=== PATIENT | female | born 1950 | race Caucasian/White ===

== ENCOUNTER 2018-02-23 11:14 | Inpatient (IN) ==
[2018-02-23] MEDS ORDERED: Ondansetron 4 MG/2 ML VIAL IVP ONE (11:39)
[2018-02-23] MEDS ORDERED: Isovue-370 500 ML INFUS..BTL IV ONE (11:41)
--- NOTE | 2018-02-23 11:54 | Emergency Department Note ---
Disposition Clinical Impression: Intra-abdominal abscess Nausea and vomiting Qualifiers: Vomiting type: unspecified Vomiting Intractability: non-intractable Qualified Code(s): R11.2 - Nausea with vomiting, unspecified Disposition: Admitted As Inpatient Condition: Fair Time of Disposition: 16:07 General Adult HPI - General Chief complaint: ED Abdominal Pain Stated complaint: ABD PAIN Time Seen by Provider: 02/23/18 11:17 Source: patient Limitations: no limitations Nursing Notes Reviewed: Yes Vital Signs Reviewed: Yes - History of Present Illness HPI Narrative: 67-year-old female with significant past medical history of recent uterine prolapse surgery completed on February 10 presenting to the emergency department chief complaint of nausea and vomiting. According to the patient for the past 3 days she has had severe nausea. One episode of nonbloody vomiting 2 days ago and another episode yesterday. Episode yesterday was a bright green emesis. Patient also states she had one loose bowel movement yesterday. Patient denies any blood in that stool. Patient states she has been unable to eat or drink anything due to her severe nausea. She denies any abdominal pain, chest pain or changes in her baseline shortness of breath. Denies any fevers at home. Pain Scale: 3 - Related Data Home Medications Medication Instructions Recorded Confirmed Albuterol Sulfate [Ventolin Hfa] 2 puff IH Q4H PRN 02/10/18 02/10/18 Atorvastatin [Lipitor] 10 mg PO HS 02/10/18 02/10/18 Buspirone HCl [Buspar] 15 mg PO BID 02/10/18 02/10/18 Cholecalciferol (D-3) [Vitamin D] 2,000 unit PO DAILY 02/10/18 02/10/18 Fluticasone Propionate Nasal 1 spr NS DAILY 02/10/18 02/10/18 [Flonase] Gabapentin [Neurontin] 300 mg PO QID 02/10/18 02/10/18 Gabapentin [Neurontin] 600 mg PO QID 02/10/18 02/10/18 Glucosamine Sulfate Dipot Chlr 1,000 mg PO DAILY 02/10/18 02/10/18 [Glucosamine] Ibuprofen [Motrin Ib] 200 mg PO TID PRN 02/10/18 02/10/18 Omeprazole [PriLOSEC] 40 mg PO DAILY 02/10/18 02/10/18 Tramadol HCl [Ultram] 50 mg PO TID PRN 02/10/18 02/10/18 Previous Rx's Medication Instructions Recorded Ibuprofen [Motrin] 600 mg PO Q6HR PRN #40 tab 02/11/18 Allergies Allergy/AdvReac Type Severity Reaction Status Date / Time povidone-iodine Allergy Rash Verified 01/27/18 10:26 [From Betadine] quinine Allergy See Verified 01/27/18 10:26 Comments soap [From Betadine] Allergy Rash Verified 01/27/18 10:26 cefdinir AdvReac Diarrhea Verified 01/27/18 10:26 ezetimibe [From Zetia] AdvReac Muscle Pain Verified 01/27/18 10:26 Pneumococcal Vaccine AdvReac Redness of Verified 01/27/18 10:26 [From Pneumovax 23] Skin All systems ED: reviewed and negative except as stated. Constitutional: Denies: fever Eyes: Reports: as per HPI ENT ED: Reports: as per HPI Cardiovascular: Denies: chest pain Respiratory: Denies: cough, dyspnea Gastrointestinal: Reports: nausea, vomiting. Denies: abdominal pain Genitourinary: Denies: urgency, dysuria, hematuria Musculoskeletal: Reports: as per HPI Integumentary: Reports: as per HPI Neurological: Reports: as per HPI Psychiatric: Reports: as per HPI Endocrine: Reports: as per HPI Hematological/Lymphatic: Reports: as per HPI Allergic/Immunologic: Reports: as per HPI Past Medical History - Past Medical History Attestation: Yes The following information was validated with the patient. Medical history: Reports: non-contributory, asthma, GERD, hyperlipidemia Psychiatric history: Reports: anxiety - Social History Smoking Status: Never smoker Smokeless Tobacco Status: No Alcohol use: Reports: none Drug use: Reports: none Physical Exam - General Limitations: no limitations General appearance: alert, in no apparent distress - Head Head exam: atraumatic, normocephalic, normal inspection - Eye Eye exam: Present: normal appearance. Absent: scleral icterus, conjunctival injection - ENT ENT exam: mucous membranes dry - Neck Neck exam: Present: normal inspection, full ROM - Chest Chest inspection: Present: normal inspection, symmetric chest wall rise - Respiratory Respiratory exam: Present: normal lung sounds bilaterally. Absent: respiratory distress, wheezes - Cardiovascular Cardiovascular exam: Present: regular rate, normal rhythm, normal heart sounds - Abdominal Exam Abdominal exam: Present: soft, tenderness (Moderate tenderness to the right lower and left lower quadrants. Minimal distention noted.), other (Well-healing surgical scars noted throughout the abdomen) - Extremities Exam Extremities exam: Present: normal inspection, full ROM - Neurological Exam Neurological exam: Present: alert, oriented X3 - Psychiatric Psychiatric exam: Present: normal affect, normal mood - Skin Skin exam: Present: warm Course Course Narrative: 67-year-old female presenting to the emergency department chief complaint of nausea and vomiting. In the room patient is alert and oriented 3 and hemodynamically stable. She states she does not have abdominal pain but during palpation she has severe abdominal pain to the lower quadrants. Her abdomen has well-healing surgical scars with minimal distention. Patient denies any urinary symptoms or chest pain. She is dry mucous membranes but otherwise physical exam is baseline. At this time will obtain basic abdominal labs including CBC, CMP, lipase along with a urine analysis and CT of abdomen and pelvis with IV contrast. We will fluid resuscitate the patient with 2 L and provide her with Zofran. Disposition pending. - Reevaluation(s) Reevaluation #1: Patient laboratory analysis shows leukocytosis but otherwise at baseline. Patient feeling significantly better after Zofran and fluids. CT of abdomen and pelvis concerning for small bowel obstruction and complex abscess in the right hemipelvis. I spoke with the photocopying machine operator on-call who will speak to the RN OPERATING ROOM physician due to patient's recent gynecological surgery. I spoke with the surgeon on-call Dr. Jacobo who is aware of the patient and will see her tomorrow. My attending spoke with the RN OPERATING ROOM physician principal solutions architect and he would like the patient to be admitted to their service and have an NG tube placed. Patient remains alert and oriented 3 and hemodynamically stable. Patient agrees with this plan. Vital Signs Temperature 98.2 F 02/23/18 11:16 Pulse Rate 83 02/23/18 11:16 Respiratory Rate 16 02/23/18 11:16 Blood Pressure 139/85 02/23/18 11:16 O2 Sat by Pulse Oximetry 95 02/23/18 11:16 Temperature 98.2 F 02/23/18 11:16 Pulse Rate 83 02/23/18 15:35 Respiratory Rate 16 02/23/18 15:35 Blood Pressure 146/75 02/23/18 15:35 O2 Sat by Pulse Oximetry 95 02/23/18 15:35 Oxygen Delivery Oxygen Delivery Room Air Medical Decision Making - Lab Data Result diagrams: 02/23/18 11:27 02/23/18 11:27 Lab Results 02/23/18 02/23/18 02/23/18 Range/Units 11:27 11:27 12:30 WBC 13.6 H (4.3-11.1) K/mcL RBC 4.40 (3.82-4.97) M/mcL Hgb 12.2 (11.5-15.4) g/dL Hct 37.2 (35.3-44.9) % MCV 84.5 (83.0-100.0) fL MCH 27.7 L (28.0-33.3) pg MCHC 32.8 (31.6-35.5) g/dL RDW 13.6 (11.5-14.5) % Plt Count 471 H (140-400) K/mcL MPV 9.6 (9.4-12.4) fL Immature Gran % 0.4 (0-4) % Seg Neutrophils % 69.6 % Lymphocytes % 19.9 % Monocytes % 9.2 % Eosinophils % 0.7 % Basophils % 0.2 % Neutrophils # 9.5 H (1.6-8.9) K/mcL Lymphocytes # 2.7 (0.6-4.6) K/mcL Monocytes # 1.3 (0.0-1.3) K/mcL Eosinophils # 0.1 (0.0-0.6) K/mcL Basophils # 0.0 (0.0-0.2) K/mcL Sodium 136 (136-145) mEq/L Potassium 4.2 (3.5-5.1) mEq/L Chloride 101 (98-107) mEq/L Carbon Dioxide 25 (23-29) mEq/L BUN 26 H (8-23) mg/dL Creatinine 0.86 (0.60-1.20) mg/dL Est GFR ( Amer) > 60 (> 60) Est GFR (Non-Af Amer) > 60 (> 60) BUN/Creatinine Ratio 30 H (6-26) Glucose 107 H (70-105) mg/dL Calculated Osmolality 287 (280-300) Calcium 9.7 (8.6-10.3) mg/dL Total Bilirubin 0.9 (0.3-1.0) mg/dL AST 21 (13-39) Units/L ALT 14 (7-52) Units/L Alkaline Phosphatase 83 (34-104) Units/L Serum Total Protein 8.7 (6.4-8.9) g/dL Albumin 4.2 (3.5-5.7) g/dL Globulin 4.5 H (2.4-3.5) g/dL Albumin/Globulin Ratio 0.9 L (1.1-2.2) Lipase 12 (11-82) Units/L Urine Color Dark Yellow (Yellow) Urine Clarity Clear (Clear) Urine pH 6.0 (5.0-8.0) pH Units Ur Specific [place] > 1.030 H (1.010-1.025) Urine Protein Trace (Neg-Trace) mg/dL Urine Glucose (UA) Normal (Normal) mg/dL Urine Ketones Negative (Negative) mg/dL Urine Blood Negative (Negative) Urine Nitrite Negative (Negative) Urine Bilirubin Small H (Negative) Urine Urobilinogen Normal (Normal) mg/dL Ur Leukocyte Esterase Moderate H (Negative) Urine Microscopic RBC 0-3 (0-3) per hpf Urine Microscopic WBC 15-30 H (0-3) per hpf Ur Squamous Epith Cells Many H (None-Few) per lpf Urine Bacteria None Seen (None-Few) per hpf Hyaline Casts None Seen (None-Few) per lpf Ur Culture Indicated? NO. A (NO) Critical Care Time Critical Care Time: Yes Total Critical Care Time: 35 Attestation: Critical care time 35 minutes managing patient's abdominal abscess. Attestation Statement - Attestation Attestation: Patient was seen with resident physician. I reviewed the history, physical, assessment and plan, and agree with the findings. I also personally evaluated this patient and had [id number] time with this patient. 67-year-old female presents emergency Department chief complaint of nausea and vomiting. Patient recently had a uterine prolapse repair with ovarian removal earlier this month. She said her last 3 days she developed nausea and vomiting. When the resident physician evaluated the patient she realized she also has lower abdominal pain. She was not complaining of pain prior. She has had at least 1 bowel movement recently. No fevers or chills. No chest pain or shortness of breath. Review systems as above remainder negative. Physical exam vital signs are stable. ENT is unremarkable. Heart regular rhythm and rate. Lungs clear. Abdomen soft tender in the lower abdomen where there is some distention. There is no guarding or rigidity. Extremities are unremarkable. Neurologically intact. Skin no rashes. Psych normal. ED course. We will do workup to check for about structure. We will also treat the patient's nausea and dehydration with fluids and medication. Disposition will depend on the findings of the workup. Hemodynamically she remained stable. CT scan the abdomen and pelvis was concerning for possible abscess as well as a small bowel obstruction. This of course is consistent with her leukocytosis as well. We will contact OB in general surgery. Patient will require hospitalization and IV antibiotics and further intervention as indicated. RN OPERATING ROOM agreed to admit the patient to their service. We will start antibiotics here in the emergency department. We will also make sure surgery is notified. We will place an NG tube. She will be admitted for further evaluation treatment. Critical care time 35 minutes. I agree with resident physician assessment and plan.
[2018-02-23] MEDS: 0.9 % Sodium Chloride 1,000 ML IVC SCH ×2 (12:04→13:11)
[2018-02-23 12:07] LABS: Basophils % 0.2 %; Eosinophils # 0.1 K/mcL (0.0-0.6); Eosinophils % 0.7 %; Hematocrit 37.2 % (35.3-44.9); Hemoglobin 12.2 g/dL (11.5-15.4); Immature Granulocytes % 0.4 % (0-4); Lymphocytes # 2.7 K/mcL (0.6-4.6); Lymphocytes % 19.9 %; Mean Corpuscular HGB Conc 32.8 g/dL (31.6-35.5); Mean Corpuscular Hemoglobin 27.7 pg (28.0-33.3); Mean Corpuscular Volume 84.5 fL (83.0-100.0); Mean Platelet Volume 9.6 fL (9.4-12.4); Monocytes # 1.3 K/mcL (0.0-1.3); Monocytes % 9.2 %; Neutrophils # 9.5 K/mcL (1.6-8.9); Platelet Count 471 K/mcL (140-400); Red Cell Distribution Width 13.6 % (11.5-14.5); Segmented Neutrophils % 69.6 %
[2018-02-23 12:16] LABS: Alanine Aminotransferase 14 Units/L (7-52); Albumin 4.2 g/dL (3.5-5.7); Albumin/Globulin Ratio 0.9 (1.1-2.2); Alkaline Phosphatase 83 Units/L (34-104); Aspartate Amino Transferase 21 Units/L (13-39); BUN/Creatinine Ratio 30 (6-26); Bilirubin,Total 0.9 mg/dL (0.3-1.0); Blood Urea Nitrogen 26 mg/dL (8-23); Calcium 9.7 mg/dL (8.6-10.3); Carbon Dioxide 25 mEq/L (23-29); Chloride 101 mEq/L (98-107); Globulin 4.5 g/dL (2.4-3.5); Glucose 107 mg/dL (70-105); Lipase 12 Units/L (11-82); Osmolality,Calculated 287 (280-300); Potassium 4.2 mEq/L (3.5-5.1); Sodium 136 mEq/L (136-145); Total Protein 8.7 g/dL (6.4-8.9); eGFR For Non-African Americans > 60 (> 60)
[2018-02-23 12:40] LABS: Bilirubin,Urine Small (Negative); Blood,Urine Negative (Negative); Color,Urine Dark Yellow (Yellow); Glucose,Urine (UA) Normal (Normal); Ketones,Urine Negative (Negative); Leukocyte Esterase,Urine Moderate (Negative); Nitrite,Urine Negative (Negative); Protein,Urine Trace mg/dL (Neg-Trace); Specific Gravity,Urine > 1.030 (1.010-1.025); Urobilinogen,Urine Normal (Normal)
[2018-02-23 12:44] LABS: Bacteria,Urine None Seen per hpf (None-Few); Clarity,Urine Clear (Clear); Hyaline Casts,Urine None Seen per lpf (None-Few); RBC,Urine 0-3 per hpf (0-3); Squamous Epithelial Cell,Urine Many per lpf (None-Few); WBC,Urine 15-30 per hpf (0-3)
[2018-02-23] MEDS ORDERED: Piperacillin/Tazobactam 4.5 GM in 0.9 % Sodium Chloride Mini Bag 100 ML IVPB ONE (14:58)
[2018-02-23] MEDS ORDERED: Doxycycline 100 MG in 0.9 % Sodium Chloride Mini Bag 100 ML IVPB ONE (14:59)
--- NOTE | 2018-02-23 15:14 | OB/GYN History & Physical ---
Date of Encounter: 02/23/18 Time of Encounter: 15:04 Assessment and Plan (1) Partial small bowel obstruction Current visit: Yes Status: Acute (2) Neutrophilic leukocytosis Current visit: Yes Status: Acute (3) Vaginal vault prolapse after hysterectomy Current visit: No Status: Acute History of Present Illness Chief complaint: nausea and vomiting x 2 days HPI: Ms. Hendrix is a 67 year old female para 3 who presents to the emergency room complaining of 2 days of nausea and vomiting. This patient states that she has been unable to keep anything down over the past 24 hours. She states that she was passing gas and having bowel movements up until yesterday morning. She has had none since. On presentation her abdomen was mildly distended and tender. A CT of the abdomen and pelvis was ordered which did show a partial small bowel obstruction with a fluid collection in the cul-de-sac measuring 3.4 x 6.4 cm. There was a questionable hemorrhage versus abscess. Her appendix was also distended. Patient had undergone a recent robotic sacral colpopexy with bilateral salpingo-oophorectomy on February [address] Chun. There was a 30 mL blood loss and was uneventful. Patient states that she had been doing well up until 2 days ago. She is been eating, taking her medications, passing flatus and having diarrhea. Blood work drawn today showed an H&H of 12.2/37.2, WBC of 13.6 with elevated neutrophils 9.5. Her glucose was 107, BUN was 26 with her BUN/CR ratio of 30. Urinalysis showed moderate leukocytes, moderate leukocyte esterase with a specific gravity greater than 1.030. Rest at patient's vital signs were stable. She is not febrile. She is not tachycardic. Patient states she last ate last p.m. Last dose medications include her gabapentin this a.m. Omeprazole was 2 days ago. Patient took Vicodin last p.m. She has allergies to iodine, quinine, Cefdinir, Zetia and Pneumovax Socially she denies tobacco, alcohol, illicit drug use Current medications include Bentyl, buspirone, tramadol, ibuprofen, Vicodin, gabapentin and omeprazole. Chronic medical conditions include fibromyalgia, hypercholesterolemia, anxiety, asthma, osteopenia, arthritis, GERD Surgical history includes a vaginal hysterectomy some years ago, full dental extraction and a recent robotic sacral colpopexy with BSO. Obstetric history significant for 3 term vaginal deliveries uncomplicated. Family history significant for hypertension and heart disease. Past Med Surg Social Fam HX - Past Medical History Medical history: non-contributory, asthma, GERD, hyperlipidemia Additional medical history: anemia, Psychiatric history: anxiety - Social History Smoking Status: Never smoker Smokeless Tobacco Status: No Alcohol use: none Drug use: none Obstetrical History - Pregnancies : 3 Para: 3 Livin Medications and Allergies Albuterol Sulfate [Ventolin Hfa] 2 puff IH Q4H PRN 02/10/18 [History] Atorvastatin [Lipitor] 10 mg PO HS 02/10/18 [History] Buspirone HCl [Buspar] 15 mg PO BID 02/10/18 [History] Cholecalciferol (D-3) [Vitamin D] 2,000 unit PO DAILY 02/10/18 [History] Fluticasone Propionate Nasal [Flonase] 1 spr NS DAILY 02/10/18 [History] Gabapentin [Neurontin] 300 mg PO QID 02/10/18 [History] Gabapentin [Neurontin] 600 mg PO QID 02/10/18 [History] Glucosamine Sulfate Dipot Chlr [Glucosamine] 1,000 mg PO DAILY 02/10/18 [History] Ibuprofen [Motrin Ib] 200 mg PO TID PRN 02/10/18 [History] Omeprazole [PriLOSEC] 40 mg PO DAILY 02/10/18 [History] Tramadol HCl [Ultram] 50 mg PO TID PRN 02/10/18 [History] Ibuprofen [Motrin] 600 mg PO Q6HR PRN #40 tab 02/11/18 [Rx] Allergy/AdvReac Type Severity Reaction Status Date / Time povidone-iodine Allergy Rash Verified 01/27/18 10:26 [From Betadine] quinine Allergy See Verified 01/27/18 10:26 Comments soap [From Betadine] Allergy Rash Verified 01/27/18 10:26 cefdinir AdvReac Diarrhea Verified 01/27/18 10:26 ezetimibe [From Zetia] AdvReac Muscle Pain Verified 01/27/18 10:26 Pneumococcal Vaccine AdvReac Redness of Verified 01/27/18 10:26 [From Pneumovax 23] Skin Review of System OB All systems PM: reviewed and no additional remarkable complaints except as stated Exam - Vital Signs Vital signs: Initial Vital Signs Temp Pulse Resp BP Pulse Ox 98.2 F 83 16 139/85 95 02/23/18 11:16 02/23/18 11:16 02/23/18 11:16 02/23/18 11:16 02/23/18 11:16 - Constitutional Constitutional: well developed, well nourished, no acute distress, average body habitus - HEENT HEENT: EOMI, PERRL, Normocephaly, Mucus Membranes Moist - Neck Neck exam: full ROM - Lungs Respiratory exam: CTAB - Cardiovascular Cardiovascular exam: RRR - Abdomen Abdomen: Present: bowel sounds hypoactive, diffuse tenderness (Tenderness is mild on examination in all 4 quadrants, mild guarding noted. Incisions well healed from surgery 2 weeks ago no erythema or induration. No signs of infecti on.), guarding noted - Extremities Extremities exam: full ROM Results Result Diagrams: 02/23/18 11:27 02/23/18 11:27 Abnormal lab results WBC 13.6 K/mcL (4.3-11.1) H 02/23/18 11:27 MCH 27.7 pg (28.0-33.3) L 02/23/18 11:27 Plt Count 471 K/mcL (140-400) H 02/23/18 11:27 Neutrophils # 9.5 K/mcL (1.6-8.9) H 02/23/18 11:27 BUN 26 mg/dL (8-23) H 02/23/18 11:27 BUN/Creatinine Ratio 30 (6-26) H 02/23/18 11:27 Glucose 107 mg/dL (70-105) H 02/23/18 11:27 Globulin 4.5 g/dL (2.4-3.5) H 02/23/18 11:27 Albumin/Globulin Ratio 0.9 (1.1-2.2) L 02/23/18 11:27 Ur Specific [place] > 1.030 (1.010-1.025) H 02/23/18 12:30 Urine Bilirubin Small (Negative) H 02/23/18 12:30 Ur Leukocyte Esterase Moderate (Negative) H 02/23/18 12:30 Urine Microscopic WBC 15-30 per hpf (0-3) H 02/23/18 12:30 Ur Squamous Epith Cells Many per lpf (None-Few) H 02/23/18 12:30 Ur Culture Indicated? NO. (NO) A 02/23/18 12:30 All other labs normal.
[2018-02-23] MEDS: Ringers Solution, Lactated 1,000 ML IVC SCH (19:57)
[2018-02-23] MEDS: Piperacillin/Tazobactam 3.375 GM in 0.9 % Sodium Chloride Mini Bag 100 ML IVPB SCH (20:07)
[2018-02-24] MEDS: Piperacillin/Tazobactam 3.375 GM in 0.9 % Sodium Chloride Mini Bag 100 ML IVPB SCH ×4 (04:15→23:39)
[2018-02-24] MEDS: Ringers Solution, Lactated 1,000 ML IVC SCH ×3 (04:39→20:22)
[2018-02-24 05:54] LABS: Basophils % 0.2 %; Eosinophils # 0.1 K/mcL (0.0-0.6); Eosinophils % 1.1 %; Hematocrit 32.6 % (35.3-44.9); Hemoglobin 10.7 g/dL (11.5-15.4); Immature Granulocytes % 0.3 % (0-4); Lymphocytes # 1.7 K/mcL (0.6-4.6); Mean Corpuscular HGB Conc 32.8 g/dL (31.6-35.5); Mean Corpuscular Hemoglobin 27.9 pg (28.0-33.3); Mean Corpuscular Volume 85.1 fL (83.0-100.0); Mean Platelet Volume 9.2 fL (9.4-12.4); Monocytes # 1.2 K/mcL (0.0-1.3); Monocytes % 10.4 %; Neutrophils # 8.1 K/mcL (1.6-8.9); Platelet Count 373 K/mcL (140-400); Red Blood Count 3.83 M/mcL (3.82-4.97); Red Cell Distribution Width 13.5 % (11.5-14.5)
[2018-02-24 06:21] LABS: Alanine Aminotransferase 11 Units/L (7-52); Albumin 3.4 g/dL (3.5-5.7); Alkaline Phosphatase 67 Units/L (34-104); Aspartate Amino Transferase 17 Units/L (13-39); BUN/Creatinine Ratio 26 (6-26); Bilirubin,Total 0.8 mg/dL (0.3-1.0); Blood Urea Nitrogen 20 mg/dL (8-23); Calcium 8.7 mg/dL (8.6-10.3); Carbon Dioxide 24 mEq/L (23-29); Chloride 106 mEq/L (98-107); Globulin 3.5 g/dL (2.4-3.5); Glucose 96 mg/dL (70-105); Osmolality,Calculated 284 (280-300); Potassium 3.7 mEq/L (3.5-5.1); Sodium 136 mEq/L (136-145); Total Protein 6.9 g/dL (6.4-8.9); eGFR For Non-African Americans > 60 (> 60)
[2018-02-24] MEDS ORDERED: Ondansetron 4 MG/2 ML VIAL IVP PRN (08:11)
--- NOTE | 2018-02-24 09:09 | General Surgery Consult Note ---
<Darline Turk - Last Filed: 02/24/18 12:08> Date of Encounter: 02/24/18 Time of Encounter: 09:07 Assessment and Plan (1) Partial small bowel obstruction Current Visit: Yes Status: Acute vs ileus. See a/p above (2) Nausea and vomiting Current Visit: Yes Status: Acute Resolving. No emesis since NG placement Qualifiers: Vomiting type: unspecified Vomiting Intractability: non-intractable Qualified Code(s): R11.2 - Nausea with vomiting, unspecified (3) Abnormal CT of the abdomen Current Visit: Yes Status: Acute CT/CT abd pelvis w iv no oral IMPRESSION: 1. Small bowel obstruction with distended mildly edematous small bowel loops with gradual transition in the mid to distal small bowel at the level of the right hemipelvis. The changes may be related to adhesions or evolving postoperative collection in the right hemipelvis. 2. Complex fluid in the right hemipelvis measuring 3.4 x 6.4 cm. This may represent an area of hemorrhage but is concerning for possible abscess. Continued follow-up recommended. 3. Liquid stool throughout the colon. Some mild distention of the appendix with no significant periappendiceal inflammatory changes. 4. Hepatic steatosis. Pt is sitting upright in chair at bedside upon my entry to room. She states her symptoms are improved compared to yesterday. Her abd exam is positive for LUQ and LLQ pain with palpation, no involuntary guarding. Reviewed findings with DR. Chun who is agreeable to consult for drain placement. Consult placed to IR for possible drainage for abd/pelvic fluid. Recommend continue supportive care and discomfort management, NG tube though intermittent wall suction, and continue IV antibiotics. Continue serial abdominal exams and repeat a.m. labs. Surgery will continue to follow along with you and assess progress. History of Present Illness Consult date: 02/23/18 (Dr. Malinda Jacobo) Reason for consult: other (Possible SBO, possible abd abscess) Requesting physician: Pau Alejo History of present illness: Blaire's past medical, surgical, social, and family history has been reviewed with the patient and updated in the electronic medical record where indicated. OF note she reports a surgical history of hysterectomy and her most recent procedure detailed below. Surgery has been consulted for recommendations regarding concern for small bowel obstruction and possible abdominal abscess. Ms. Hendrix recently underwentrobotic sacral colpopexy with bilateral salpingo- oophorectomy on February 10, [address] Chun. She presented to the emergency department on 02/23/2018 following a two-day history of abdominal pain and pressure, nausea, and vomiting. She reports she was unable to hold down any liquid. She denied diarrhea. She denied fever, chills, headache, dizziness, chest pain, shortness of breath, or urinary signs or symptoms. She reports that when she would walk or need to urinate it caused abdominal pain that required her to splint her abdomen. She is unable to quantify her pain meds scale of 0 to 10, stating "it was just pressure." She states since the NG tube was placed that her abdominal pressure and nausea have resolved. She has not passed flatus or had a bowel movement since admission. She reports the last time she can remember having a bowel movement or passing gas would of been on or Saturday of last week. Past Med Surg Social Fam HX - Past Medical History Source: patient, old records reviewed Medical history: asthma, GERD, hyperlipidemia Additional medical history: anemia, fibromyalgia Psychiatric history: anxiety - Past Surgical History Surgical History: hysterectomy Additional surgical history: robotic sacrocolpopexy 02/10/2018 (Dr. Chun) - Social History Smoking Status: Never smoker Smokeless Tobacco Status: No Alcohol use: none Drug use: none Occupational status: unemployed Current living situation: Home - Independent Activity Level: Independent ambulation Recent Out of Country Travel Within the Last 8 Weeks: No Exposure or Possible Exposure to Illness During Travel: No Medications and Allergies Albuterol Sulfate [Ventolin Hfa] 2 puff IH Q4H PRN 02/10/18 [History] Atorvastatin [Lipitor] 10 mg PO HS 02/10/18 [History] Buspirone HCl [Buspar] 15 mg PO BID 02/10/18 [History] Cholecalciferol (D-3) [Vitamin D] 2,000 unit PO DAILY 02/10/18 [History] Fluticasone Propionate Nasal [Flonase] 1 spr NS DAILY 02/10/18 [History] Gabapentin [Neurontin] 300 mg PO QID 02/10/18 [History] Gabapentin [Neurontin] 600 mg PO QID 02/10/18 [History] Glucosamine Sulfate Dipot Chlr [Glucosamine] 1,000 mg PO DAILY 02/10/18 [History] Ibuprofen [Motrin Ib] 200 mg PO TID PRN 02/10/18 [History] Omeprazole [PriLOSEC] 40 mg PO DAILY 02/10/18 [History] Tramadol HCl [Ultram] 50 mg PO TID PRN 02/10/18 [History] Ibuprofen [Motrin] 600 mg PO Q6HR PRN #40 tab 02/11/18 [Rx] Allergy/AdvReac Type Severity Reaction Status Date / Time povidone-iodine Allergy Rash Verified 01/27/18 10:26 [From Betadine] quinine Allergy See Verified 01/27/18 10:26 Comments soap [From Betadine] Allergy Rash Verified 01/27/18 10:26 cefdinir AdvReac Diarrhea Verified 01/27/18 10:26 ezetimibe [From Zetia] AdvReac Muscle Pain Verified 01/27/18 10:26 Pneumococcal Vaccine AdvReac Redness of Verified 01/27/18 10:26 [From Pneumovax 23] Skin Review of Systems All systems PM: reviewed and no additional remarkable complaints except as stated All systems PM: The remainder of the systems were reviewed and are negative General Surgery Exam Initial Vital Signs Temp Pulse Resp BP Pulse Ox 98.2 F 83 16 139/85 95 02/23/18 11:16 02/23/18 11:16 02/23/18 11:16 02/23/18 11:16 02/23/18 11:16 Vital Signs Temp Pulse Resp BP Pulse Ox 02/24/18 08:00 99.1 F 77 16 138/72 96 02/24/18 03:50 98.4 F 75 16 144/72 94 02/23/18 19:57 99.2 F 70 16 127/69 98 02/23/18 16:30 98.4 F 74 16 148/76 95 02/23/18 16:02 16 142/69 02/23/18 15:35 83 16 146/75 95 02/23/18 15:13 85 135/71 94 02/23/18 14:15 81 18 140/75 98 02/23/18 13:00 85 16 124/57 96 Intake and Output 02/23/18 02/24/18 02/24/18 23:59 07:59 15:59 Intake Total 1100 / 1100 1100 / 1100 Output Total 500 / 500 850 / 850 Balance -500 / -500 250 / 250 1100 / 1100 Intake: IV Fluids 1100 / 1100 1100 / 1100 Lactated Ringers 1,000 ML @ 125 1000 / 1000 1000 / 1000 mls/hr IVC .Q8H PAT Rx#: [id number] Zosyn 3.375 GM In 0.9 % Sodium 100 / 100 100 / 100 Chloride (Mini-Bag +) 100 ML @ 25 mls/hr IVPB Q8H PAT Rx#: [id number] Output: Urine 300 / 300 200 / 200 Gastric Drainage 200 / 200 650 / 650 Other: Weight 75.4 kg 76.3 kg Patient Weight 02/24/18 23:59 Weight 76.3 kg VITAL SIGNS: Reviewed. See [facility] GENERAL: In no apparent distress. HEENT: Normocephalic, atraumatic, pupils are equal and reactive, extraocular motions intact, oropharynx is pink and moist, there is no neck adenopathy or JVD noted. CHEST/RESPIRATORY: The thorax is free from signs of trauma. Lung sounds: clear to auscultation, normal respiratory effort CARDIAC: Regular rate and rhythm. Normal S1 and S2, without murmurs, gallops, or rubs. VASCULAR: No Edema. 2+ peripheral pulses. ABDOMEN: soft, tender left upper and lower quadrant to mild moderate palpation, no involuntary guarding noted, absent bowel sounds, previous surgical incisions for the robotic procedure are clean, dry, and intact. MUSCULOSKELETAL: Good range of motion of all major joints. Extremities without clubbing, cyanosis or edema. NEUROLOGIC EXAM: Alert and oriented x 3. Speech normal. Follows commands. PSYCHIATRIC: Mood normal. SKIN: No rash or lesions. Exam Initial Vital Signs Temp Pulse Resp BP Pulse Ox 98.2 F 83 16 139/85 95 02/23/18 11:16 02/23/18 11:16 02/23/18 11:16 18 11:16 02/23/18 11:16 Results - Labs 02/24/18 05:44 02/24/18 05:44 Abnormal lab results Hgb 10.7 g/dL (11.5-15.4) L D 02/24/18 05:44 Hct 32.6 % (35.3-44.9) L 02/24/18 05:44 MCH 27.9 pg (28.0-33.3) L 02/24/18 05:44 MPV 9.2 fL (9.4-12.4) L 02/24/18 05:44 Albumin 3.4 g/dL (3.5-5.7) L 02/24/18 05:44 Albumin/Globulin Ratio 1.0 (1.1-2.2) L 02/24/18 05:44 Ur Specific [place] > 1.030 (1.010-1.025) H 02/23/18 12:30 Urine Bilirubin Small (Negative) H 02/23/18 12:30 Ur Leukocyte Esterase Moderate (Negative) H 02/23/18 12:30 Urine Microscopic WBC 15-30 per hpf (0-3) H 02/23/18 12:30 Ur Squamous Epith Cells Many per lpf (None-Few) H 02/23/18 12:30 Ur Culture Indicated? NO. (NO) A 02/23/18 12:30 Diabetes panel 02/23/18 02/24/18 Range/Units 11:27 05:44 Sodium 136 136 (136-145) mEq/L Potassium 4.2 3.7 (3.5-5.1) mEq/L Chloride 101 106 (98-107) mEq/L Carbon Dioxide 25 24 (23-29) mEq/L BUN 26 H 20 (8-23) mg/dL Creatinine 0.86 0.77 (0.60-1.20) mg/dL Glucose 107 H 96 (70-105) mg/dL Calcium 9.7 8.7 (8.6-10.3) mg/dL AST 21 17 (13-39) Units/L ALT 14 11 (7-52) Units/L Alkaline Phosphatase 83 67 (34-104) Units/L Albumin 4.2 3.4 L (3.5-5.7) g/dL Calcium panel 02/23/18 02/24/18 Range/Units 11:27 05:44 Calcium 9.7 8.7 (8.6-10.3) mg/dL Albumin 4.2 3.4 L (3.5-5.7) g/dL Pituitary panel 02/23/18 02/24/18 Range/Units 11:27 05:44 Sodium 136 136 (136-145) mEq/L Potassium 4.2 3.7 (3.5-5.1) mEq/L Chloride 101 106 (98-107) mEq/L Carbon Dioxide 25 24 (23-29) mEq/L BUN 26 H 20 (8-23) mg/dL Creatinine 0.86 0.77 (0.60-1.20) mg/dL Glucose 107 H 96 (70-105) mg/dL Calcium 9.7 8.7 (8.6-10.3) mg/dL Adrenal panel 02/23/18 02/24/18 Range/Units 11:27 05:44 Sodium 136 136 (136-145) mEq/L Potassium 4.2 3.7 (3.5-5.1) mEq/L Chloride 101 106 (98-107) mEq/L Carbon Dioxide 25 24 (23-29) mEq/L BUN 26 H 20 (8-23) mg/dL Creatinine 0.86 0.77 (0.60-1.20) mg/dL Glucose 107 H 96 (70-105) mg/dL Calcium 9.7 8.7 (8.6-10.3) mg/dL Total Bilirubin 0.9 0.8 (0.3-1.0) mg/dL AST 21 17 (13-39) Units/L ALT 14 11 (7-52) Units/L Alkaline Phosphatase 83 67 (34-104) Units/L Albumin 4.2 3.4 L (3.5-5.7) g/dL All other labs normal. - Imaging Abdominal x-ray: report reviewed, image reviewed CT scan - abdomen: report reviewed, image reviewed CT scan - pelvis: report reviewed, image reviewed Consult Discharge Plan - Plan Referrals: Cal Odom MD [Primary Care Provider] - <Malinda Jacobo - Last Filed: 02/24/18 18:09> Date of Encounter: 02/24/18 Assessment and Plan (1) Partial small bowel obstruction Current Visit: Yes Status: Acute (2) Nausea and vomiting Current Visit: Yes Status: Acute Qualifiers: Vomiting type: unspecified Vomiting Intractability: non-intractable Qualified Code(s): R11.2 - Nausea with vomiting, unspecified (3) Abnormal CT of the abdomen Current Visit: Yes Status: Acute (4) Small bowel obstruction due to postoperative adhesions Current Visit: Yes Status: Acute discussed with patient that I have personally reviewed her CT scan she has a small bowel obstruction without flatus or bm for about 3 days now continue ngt decompression to lIWS ivf hydration prn pain control ambulate (ok to clamp ngt to ambulate) gi/dvt prophylaxis IS, aggressive pulmonary toilet await return of bowel function IR note noted (5) GERD (gastroesophageal reflux disease) Current Visit: Yes Status: Chronic patient on PPI therapy at home, changed to protonix Qualifiers: Esophagitis presence: esophagitis presence not specified Qualified Code(s): K21.9 - Gastro-esophageal reflux disease without esophagitis (6) Low grade fever Current Visit: Yes Status: Acute added scheduled ofirmev Past Med Surg Social Fam HX - Past Medical History Source: patient Medical history: asthma, GERD, hyperlipidemia Review of Systems All systems PM: reviewed and no additional remarkable complaints except as stated All systems PM: The remainder of the systems were reviewed and are negative General Surgery Exam Initial Vital Signs Temp Pulse Resp BP Pulse Ox 98.2 F 83 16 139/85 95 02/23/18 11:16 02/23/18 11:16 02/23/18 11:16 02/23/18 11:16 02/23/18 11:16 - General physical appearance well developed, well nourished, no distress - Eyes PERRL, normal ocular movement - ENT normal mucosa, normocephalic - Neck trachea midline - Respiratory normal expansion, clear to auscultation - Cardiovascular Cardiovascular exam: Present: RRR - Abdomen Abdomen general surgery: Present: bowel sounds present, soft, tender. Absent: distended, guarding, rebound Abdominal Tenderness: Present: RLQ - Integumentary Integumentary general surgery: Present: warm and dry, no abnormal pigmentation - Neurologic Present: CN 2-12 grossly intact - Musculoskeletal Present: normal posture - Psychiatric Psychiatric general surgery: Present: A&Ox3, speech is normal Exam Initial Vital Signs Temp Pulse Resp BP Pulse Ox 98.2 F 83 16 139/85 95 02/23/18 11:16 02/23/18 11:16 18 11:16 02/23/18 11:16 02/23/18 11:16 Results - Labs 02/24/18 05:44 02/24/18 05:44 Abnormal lab results Hgb 10.7 g/dL (11.5-15.4) L D 02/24/18 05:44 Hct 32.6 % (35.3-44.9) L 02/24/18 05:44 MCH 27.9 pg (28.0-33.3) L 02/24/18 05:44 MPV 9.2 fL (9.4-12.4) L 02/24/18 05:44 PT 12.8 Seconds (9.4-12.1) H 02/24/18 11:17 Albumin 3.4 g/dL (3.5-5.7) L 02/24/18 05:44 Albumin/Globulin Ratio 1.0 (1.1-2.2) L 02/24/18 05:44 Ur Specific Ora > 1.030 (1.010-1.025) H 02/23/18 12:30 Urine Bilirubin Small (Negative) H 02/23/18 12:30 Ur Leukocyte Esterase Moderate (Negative) H 02/23/18 12:30 Urine Microscopic WBC 15-30 per hpf (0-3) H 02/23/18 12:30 Ur Squamous Epith Cells Many per lpf (None-Few) H 02/23/18 12:30 Ur Culture Indicated? NO. (NO) A 02/23/18 12:30 Diabetes panel 02/24/18 Range/Units 05:44 Sodium 136 (136-145) mEq/L Potassium 3.7 (3.5-5.1) mEq/L Chloride 106 (98-107) mEq/L Carbon Dioxide 24 (23-29) mEq/L BUN 20 (8-23) mg/dL Creatinine 0.77 (0.60-1.20) mg/dL Glucose 96 (70-105) mg/dL Calcium 8.7 (8.6-10.3) mg/dL AST 17 (13-39) Units/L ALT 11 (7-52) Units/L Alkaline Phosphatase 67 (34-104) Units/L Albumin 3.4 L (3.5-5.7) g/dL Calcium panel 02/24/18 Range/Units 05:44 Calcium 8.7 (8.6-10.3) mg/dL Albumin 3.4 L (3.5-5.7) g/dL Pituitary panel 02/24/18 Range/Units 05:44 Sodium 136 (136-145) mEq/L Potassium 3.7 (3.5-5.1) mEq/L Chloride 106 (98-107) mEq/L Carbon Dioxide 24 (23-29) mEq/L BUN 20 (8-23) mg/dL Creatinine 0.77 (0.60-1.20) mg/dL Glucose 96 (70-105) mg/dL Calcium 8.7 (8.6-10.3) mg/dL Adrenal panel 02/24/18 Range/Units 05:44 Sodium 136 (136-145) mEq/L Potassium 3.7 (3.5-5.1) mEq/L Chloride 106 (98-107) mEq/L Carbon Dioxide 24 (23-29) mEq/L BUN 20 (8-23) mg/dL Creatinine 0.77 (0.60-1.20) mg/dL Glucose 96 (70-105) mg/dL Calcium 8.7 (8.6-10.3) mg/dL Total Bilirubin 0.8 (0.3-1.0) mg/dL AST 17 (13-39) Units/L ALT 11 (7-52) Units/L Alkaline Phosphatase 67 (34-104) Units/L Albumin 3.4 L (3.5-5.7) g/dL All other labs normal. - Imaging CT scan - abdomen: report reviewed, image reviewed CT scan - pelvis: report reviewed, image reviewed - Attending Attestation I have personally performed a face to face evaluation on this patient. I have reviewed and agree with the care plan. History and Exam by me shows:
[2018-02-24 11:59] LABS: INR 1.1; Prothrombin Time 12.8 Seconds (9.4-12.1)
[2018-02-24] MEDS ORDERED: OXYCODONE Oral CONC 10 MG/0.5 ML ORAL.SYG SL PRN ×2 (12:23)
[2018-02-24] MEDS ORDERED: Saliva Stimulant 100ml BOTTLE PO PRN (12:24)
[2018-02-24] MEDS ORDERED: Chloraseptic Spray 177 ML BOTTLE MM PRN (12:24)
[2018-02-24] MEDS ORDERED: Acetaminophen IV 1,000 MG/100 ML INFUS..BTL IVPB ONE (13:25)
[2018-02-24] MEDS ORDERED: *HR* Midazolam HCl 2 MG/2 ML VIAL IVP ONE (15:14)
[2018-02-24] MEDS ORDERED: *HR* FentaNYL (PF) 100 MCG/2 ML VIAL IVP ONE (15:14)
--- NOTE | 2018-02-24 15:36 | IR Procedure Note ---
Date of procedure: 02/24/18 Consent Obtained: Verbal consent, Written consent Timeout: Correct patient and procedure verified, Correct site verified, Time out performed, Skin prep completed Local anesthetic: Lidocaine 1% Indications: Pelvic fluid collection Procedure Performed: CT guided aspiration Was there an medical assistant per diem present: No Site/Technique: CT guided pelvic fluid aspiration Results/Findings: Small pelvic hematoma present Estimated blood loss (cc): 1 Complications: None; Tolerated procedure well Post Procedure Treatment Plan: Continue inpatient care Specimen: 10 cc old blood
[2018-02-24] MEDS ORDERED: Famotidine 20 MG/2 ML VIAL IVP SCH (18:00)
--- NOTE | 2018-02-24 18:11 | OB/GYN Progress Note ---
Date of Encounter: 02/24/18 Time of Encounter: 08:10 Subjective - Subjective Principal diagnosis: s/p sacrocolpopexy with bowel obstruction vs ileus and pelvic fluid collect Interval history: Pt 2 weeks s/p uncomplicated robotic sacrocolpopexy now with h/o n/v and no passage of gas or stool per rectum since saturday afternoon. She presented feeling quite weak with profuse n/v. She now has NG with bilious drainage. She feels better overall and feels urge to have a bm. She is ambulating to BR and voiding. Objective - Vital Signs Latest vital signs: Vital Signs Temp Pulse Resp BP Pulse Ox 02/24/18 17:12 99.5 F 67 16 144/77 02/24/18 15:28 69 12 114/59 97 02/24/18 08:00 99.1 F 77 16 138/72 96 02/24/18 03:50 98.4 F 75 16 144/72 94 02/23/18 19:57 99.2 F 70 16 127/69 98 Intake and Output 02/24/18 02/24/18 02/24/18 07:59 15:59 23:59 Intake Total 1100 / 1100 1100 / 1100 Output Total 850 / 850 300 / 300 Balance 250 / 250 800 / 800 Intake: IV Fluids 1100 / 1100 1100 / 1100 Lactated Ringers 1,000 ML @ 125 1000 / 1000 1000 / 1000 mls/hr IVC .Q8H PAT Rx#: [id number] Zosyn 3.375 GM In 0.9 % Sodium 100 / 100 100 / 100 Chloride (Mini-Bag +) 100 ML @ 25 mls/hr IVPB Q8H PAT Rx#: [id number] Output: Urine 200 / 200 300 / 300 Gastric Drainage 650 / 650 Other: Weight 76.3 kg Patient Weight 02/24/18 23:59 Weight 76.3 kg - I&O's I&O's: Intake & Output 02/21/18 02/22/18 02/23/18 02/24/18 23:59 23:59 23:59 23:59 Intake Total 2000 / 2000 2200 / 2200 Output Total 650 / 650 1150 / 1150 Balance 1350 / 1350 1050 / 1050 Weight 75.4 kg 76.3 kg - Exam Lungs: bilateral: normal Chest: Normal S1, Normal S2 Extremities: Present: normal Abdomen: Present: soft, other (minimally distended, diffusely tender.) Incision OB: Present: intact - Labs Labs: Abnormal lab results Hgb 10.7 g/dL (11.5-15.4) L D 02/24/18 05:44 Hct 32.6 % (35.3-44.9) L 02/24/18 05:44 MCH 27.9 pg (28.0-33.3) L 02/24/18 05:44 MPV 9.2 fL (9.4-12.4) L 02/24/18 05:44 PT 12.8 Seconds (9.4-12.1) H 02/24/18 11:17 Albumin 3.4 g/dL (3.5-5.7) L 02/24/18 05:44 Albumin/Globulin Ratio 1.0 (1.1-2.2) L 02/24/18 05:44 Ur Specific [place] > 1.030 (1.010-1.025) H 02/23/18 12:30 Urine Bilirubin Small (Negative) H 02/23/18 12:30 Ur Leukocyte Esterase Moderate (Negative) H 02/23/18 12:30 Urine Microscopic WBC 15-30 per hpf (0-3) H 02/23/18 12:30 Ur Squamous Epith Cells Many per lpf (None-Few) H 02/23/18 12:30 Ur Culture Indicated? NO. (NO) A 02/23/18 12:30 Consult Discharge Plan - Plan Referrals: Cal Odom MD [Primary Care Provider] -
[2018-02-24] MEDS ORDERED: Piperacillin/Tazobactam 3.375 GM in 0.9 % Sodium Chloride Mini Bag 100 ML IVPB SCH (19:00)
[2018-02-24] MEDS: Acetaminophen IV 1,000 MG/100 ML INFUS..BTL IVPB SCH (21:09)
[2018-02-25] MEDS ORDERED: Acetaminophen IV 1,000 MG/100 ML INFUS..BTL IVPB SCH
[2018-02-25 06:12] LABS: Basophils % 0.2 %; Eosinophils # 0.1 K/mcL (0.0-0.6); Eosinophils % 1.3 %; Hematocrit 30.7 % (35.3-44.9); Hemoglobin 10.2 g/dL (11.5-15.4); Immature Granulocytes % 0.2 % (0-4); Lymphocytes # 1.4 K/mcL (0.6-4.6); Lymphocytes % 27.6 %; Mean Corpuscular HGB Conc 33.2 g/dL (31.6-35.5); Mean Corpuscular Volume 84.3 fL (83.0-100.0); Mean Platelet Volume 9.3 fL (9.4-12.4); Monocytes # 0.8 K/mcL (0.0-1.3); Monocytes % 15.9 %; Neutrophils # 2.9 K/mcL (1.6-8.9); Platelet Count 318 K/mcL (140-400); Red Blood Count 3.64 M/mcL (3.82-4.97); Red Cell Distribution Width 13.2 % (11.5-14.5); Segmented Neutrophils % 54.8 %
[2018-02-25 06:26] LABS: BUN/Creatinine Ratio 22 (6-26); Blood Urea Nitrogen 15 mg/dL (8-23); Calcium 8.5 mg/dL (8.6-10.3); Carbon Dioxide 21 mEq/L (23-29); Chloride 105 mEq/L (98-107); Glucose 86 mg/dL (70-105); Magnesium 1.9 mg/dL (1.6-2.6); Osmolality,Calculated 282 (280-300); Phosphorous 3.4 mg/dL (2.7-4.5); Potassium 3.4 mEq/L (3.5-5.1); Sodium 136 mEq/L (136-145); eGFR For Non-African Americans > 60 (> 60)
[2018-02-25] MEDS: Acetaminophen IV 1,000 MG/100 ML INFUS..BTL IVPB SCH ×4 (08:01→23:15)
[2018-02-25] MEDS: Piperacillin/Tazobactam 3.375 GM in 0.9 % Sodium Chloride Mini Bag 100 ML IVPB SCH ×2 (08:29→16:48)
[2018-02-25] MEDS ORDERED: Pantoprazole 40 MG VIAL IVP SCH (09:00)
--- NOTE | 2018-02-25 12:29 | General Surgery Progress Note ---
<Darline Turk - Last Filed: 02/25/18 12:26> Date of Encounter: 02/25/18 Time of Encounter: 08:00 - Assessment and Plan (1) Small bowel obstruction due to postoperative adhesions Current Visit: Yes Status: Acute Patient reports small amount of flatus and has had a BM. She reports her abdominal discomfort is improved. She is noted to have a low-grade temperature 99.1; given that her symptoms have improved, and she is nontender to palpation, we will proceed with a small bowel follow-through with Gastrograffin through the NG tube to rule out small bowel obstruction. Of note, patient return to her room at approximately 1054 this a.m. Radiology advised the RN not to return patient to suction and they would finish her images with portable x-rays. This is acceptable however if the patient has nausea or vomiting, we will recommend that she have her NG replaced to low intermittent wall suction. We will continue to follow for recommendations. Small bowel follow-through as above replace NG to low intermittent wall suction if nausea or vomiting PRN supportive care and discomfort management ambulate TID (okay to clamp NG tube to ambulate) continue G.I. and DVT prophylaxis per primary team continue incentive spirometry will continue to closely monitor and Surgery will continue to follow along. (2) Abnormal CT of the abdomen Current Visit: Yes Status: Acute Noted CT guided aspiration on 02/24/2018 by interventional radiology with approximately 10 mL of old blood retrieved. Findings consistent with the small pelvic hematoma. Cultures pending (3) Nausea and vomiting Current Visit: Yes Status: Resolved Qualifiers: Vomiting type: unspecified Vomiting Intractability: non-intractable Qualified Code(s): R11.2 - Nausea with vomiting, unspecified Subjective Patient reports: no new complaints, still having pain, pain is less, voiding w/o difficulty, flatus, bowel movement, afebrile Objective Vital Signs - Last 8 Hours Temp Pulse Resp BP Pulse Ox 02/25/18 07:50 99.1 F 63 16 144/69 95 02/25/18 06:29 98.2 F 67 14 143/68 95 Intake and Output 02/24/18 02/25/18 02/25/18 23:59 07:59 15:59 Intake Total 1065 / 1065 120 / 120 300 / 300 Output Total 1400 / 1400 940 / 940 Balance -335 / -335 -820 / -820 300 / 300 Intake: IV Fluids 1000 / 1000 100 / 100 300 / 300 Lactated Ringers 1,000 ML @ 125 1000 / 1000 mls/hr IVC .Q8H PAT Rx#: [id number] Ofirmev 1,000 mg/100 ml 1,000 100 / 100 100 / 100 mg In 100 ml @ 400 mls/hr IVPB Q6H PAT Rx#:[id number] Zosyn 3.375 GM In 0.9 % Sodium 200 / 200 Chloride (Mini-Bag +) 100 ML @ 25 mls/hr IVPB Q8HR PAT Rx#: [id number] Oral 15 / 15 20 / 20 Other 50 / 50 Output: Urine 900 / 900 600 / 600 Gastric Drainage 500 / 500 340 / 340 Other: Stool Size Moderate Stool Consistency soft formed Stool Characteristics Normal for Patient Stool Color Brown # Bowel Movements 1 Weight 74.616 kg Patient Weight 02/25/18 23:59 Weight 74.616 kg - General physical appearance well nourished, no distress, other (Noted low-grad temp) - Eyes normal ocular movement - ENT normal nares, normal mucosa - Neck Neck exam: trachea midline - Respiratory normal expansion, normal respiratory effort, clear to auscultation - Cardiovascular Cardiovascular exam: Present: RRR - Abdomen Abdomen: Present: bowel sounds present, soft, non tender - Incision Incision: Present: clean and dry, intact - Integumentary no rash - Neurologic normal coordination, normal sensation - Musculoskeletal normal posture - Psychiatric oriented to time, oriented to person, oriented to place, speech is normal, memory intact - Labs 02/25/18 05:54 02/25/18 05:54 Diabetes panel 02/25/18 Range/Units 05:54 Sodium 136 (136-145) mEq/L Potassium 3.4 L (3.5-5.1) mEq/L Chloride 105 (98-107) mEq/L Carbon Dioxide 21 L (23-29) mEq/L BUN 15 (8-23) mg/dL Creatinine 0.69 (0.60-1.20) mg/dL Glucose 86 (70-105) mg/dL Calcium 8.5 L (8.6-10.3) mg/dL Calcium panel 02/25/18 Range/Units 05:54 Calcium 8.5 L (8.6-10.3) mg/dL Phosphorus 3.4 (2.7-4.5) mg/dL Pituitary panel 02/25/18 Range/Units 05:54 Sodium 136 (136-145) mEq/L Potassium 3.4 L (3.5-5.1) mEq/L Chloride 105 (98-107) mEq/L Carbon Dioxide 21 L (23-29) mEq/L BUN 15 (8-23) mg/dL Creatinine 0.69 (0.60-1.20) mg/dL Glucose 86 (70-105) mg/dL Calcium 8.5 L (8.6-10.3) mg/dL Adrenal panel 02/25/18 Range/Units 05:54 Sodium 136 (136-145) mEq/L Potassium 3.4 L (3.5-5.1) mEq/L Chloride 105 (98-107) mEq/L Carbon Dioxide 21 L (23-29) mEq/L BUN 15 (8-23) mg/dL Creatinine 0.69 (0.60-1.20) mg/dL Glucose 86 (70-105) mg/dL Calcium 8.5 L (8.6-10.3) mg/dL - VTE Reasons for not Prescribing Prophylaxis: Treatment not Indicated - Low risk for VTE Documentation of Mechanical Device: Graduated compression elastic hosiery Consult Discharge Plan - Plan Referrals: Cal Odom MD [Primary Care Provider] - <Malinda Jacobo - Last Filed: 02/25/18 18:21> Date of Encounter: 02/25/18 - Assessment and Plan (1) Abnormal CT of the abdomen Current Visit: Yes Status: Acute (2) Small bowel obstruction due to postoperative adhesions Current Visit: Yes Status: Acute patient with small amount of flatus, bm x 1 no nausea distended nurses hooked ngt up to liws after sbft and got at least 1700 (reported) out continue conservative therapy - ngt to liws add reglan sbft with delayed transit no obvious obstruction (3) GERD (gastroesophageal reflux disease) Current Visit: Yes Status: Chronic Qualifiers: Esophagitis presence: esophagitis presence not specified Qualified Code(s): K21.9 - Gastro-esophageal reflux disease without esophagitis (4) Low grade fever Current Visit: Yes Status: Acute Subjective Patient reports: no new complaints, still having pain, pain is less, flatus, bowel movement, afebrile, other (nurse reports at least 1700 cc out ngt after sbft) Objective Vital Signs - Last 8 Hours Temp Pulse Resp BP Pulse Ox 02/25/18 16:40 98.2 F 60 14 132/70 94 Intake and Output 02/25/18 02/25/18 02/25/18 07:59 15:59 23:59 Intake Total 120 / 120 300 / 300 400 / 400 Output Total 940 / 940 1400 / 1400 200 / 200 Balance -820 / -820 -1100 / -1100 200 / 200 Intake: IV Fluids 100 / 100 300 / 300 400 / 400 Ofirmev 1,000 mg/100 ml 1,000 100 / 100 100 / 100 200 / 200 mg In 100 ml @ 400 mls/hr IVPB Q6H PAT Rx#:[id number] Zosyn 3.375 GM In 0.9 % Sodium 200 / 200 Chloride (Mini-Bag +) 100 ML @ 25 mls/hr IVPB Q8HR PAT Rx#: [id number] Potassium Chloride 10 mEq/100mL 200 / 200 10 meq In 100 ml @ 100 mls/hr IVPB Q1H PAT Rx#:[id number] Oral 20 / 20 Output: Urine 600 / 600 100 / 100 Gastric Tube Lavage Amount 1400 / 1400 100 / 100 Right Nare 1400 / 1400 100 / 100 Gastric Drainage 340 / 340 Other: Stool Size Moderate Stool Consistency soft formed Stool Characteristics Normal for Patient Stool Color Brown # Bowel Movements 1 Weight 74.616 kg Patient Weight 02/25/18 23:59 Weight 74.616 kg - General physical appearance well developed, well nourished, no distress - Eyes PERRL, normal ocular movement - ENT normal mucosa, normocephalic - Neck Neck exam: trachea midline - Respiratory normal expansion, clear to auscultation - Cardiovascular Cardiovascular exam: Present: RRR - Abdomen Abdomen: Present: bowel sounds present, soft, tender (minimal). Absent: guarding, rebound - Integumentary no rash - Neurologic normal coordination, normal sensation - Musculoskeletal normal posture - Psychiatric oriented to time, oriented to person, oriented to place, speech is normal, memory intact - Labs 02/25/18 05:54 02/25/18 05:54 Diabetes panel 02/25/18 Range/Units 05:54 Sodium 136 (136-145) mEq/L Potassium 3.4 L (3.5-5.1) mEq/L Chloride 105 (98-107) mEq/L Carbon Dioxide 21 L (23-29) mEq/L BUN 15 (8-23) mg/dL Creatinine 0.69 (0.60-1.20) mg/dL Glucose 86 (70-105) mg/dL Calcium 8.5 L (8.6-10.3) mg/dL Calcium panel 02/25/18 Range/Units 05:54 Calcium 8.5 L (8.6-10.3) mg/dL Phosphorus 3.4 (2.7-4.5) mg/dL Pituitary panel 02/25/18 Range/Units 05:54 Sodium 136 (136-145) mEq/L Potassium 3.4 L (3.5-5.1) mEq/L Chloride 105 (98-107) mEq/L Carbon Dioxide 21 L (23-29) mEq/L BUN 15 (8-23) mg/dL Creatinine 0.69 (0.60-1.20) mg/dL Glucose 86 (70-105) mg/dL Calcium 8.5 L (8.6-10.3) mg/dL Adrenal panel 02/25/18 Range/Units 05:54 Sodium 136 (136-145) mEq/L Potassium 3.4 L (3.5-5.1) mEq/L Chloride 105 (98-107) mEq/L Carbon Dioxide 21 L (23-29) mEq/L BUN 15 (8-23) mg/dL Creatinine 0.69 (0.60-1.20) mg/dL Glucose 86 (70-105) mg/dL Calcium 8.5 L (8.6-10.3) mg/dL - Attending Attestation I have personally performed a face to face evaluation on this patient. I have reviewed and agree with the care plan. History and Exam by me shows:
[2018-02-25] MEDS ORDERED: Ringers Solution, Lactated 1,000 ML IVC SCH (12:30)
[2018-02-25] MEDS: Pantoprazole 40 MG VIAL IVP SCH (14:16)
[2018-02-25] MEDS: Ringers Solution, Lactated 1,000 ML IVC SCH (15:25)
[2018-02-25] MEDS: D5% in 0.45% NACL w KCl 20 MEQ/1,000 ML MLS IVC SCH (18:54)
--- NOTE | 2018-02-25 20:36 | OB/GYN Progress Note ---
Date of Encounter: 02/25/18 Time of Encounter: 20:33 - Assessment and Plan (1) Abnormal CT of the abdomen Current Visit: Yes Status: Acute Pt with probable partial bowel obstruction that seem to be resolving with conservative measures. She had SBFT today that showed delayed transit and somewhat dilated bowel c/w partial obstruction. Clinially she looks pretty good and seem plan per surgery will be to try clamping NG tube tomorrow if she continues to do well overnight. She has active BS and doesn't look toxic. (2) Low grade fever Current Visit: Yes Status: Acute No obvious active infection. The fluid collection as drained by IR showed only blood and cx's are pending. She remains on atb. Subjective - Subjective Principal diagnosis: partial small bowel obstruction Interval history: PT with less abdominal tenderness today. She has had flatus and small BM after gastrograffin study. She is ambulating. Overall states she feels pretty well. Good pain control with IV Tylenol which she used once, mainl for fibromyalgia. Objective - Vital Signs Latest vital signs: Vital Signs Temp Pulse Resp BP Pulse Ox 02/25/18 16:40 98.2 F 60 14 132/70 94 02/25/18 07:50 99.1 F 63 16 144/69 95 02/25/18 06:29 98.2 F 67 14 143/68 95 02/24/18 23:35 98.3 F 63 16 127/68 94 Intake and Output 02/25/18 02/25/18 02/25/18 07:59 15:59 23:59 Intake Total 120 / 120 300 / 300 1151 / 1151 Output Total 940 / 940 1400 / 1400 450 / 450 Balance -820 / -820 -1100 / -1100 701 / 701 Intake: IV Fluids 100 / 100 300 / 300 1151 / 1151 Lactated Ringers 1,000 ML @ 125 751 / 751 mls/hr IVC .Q8H PAT Rx#: [id number] Ofirmev 1,000 mg/100 ml 1,000 100 / 100 100 / 100 200 / 200 mg In 100 ml @ 400 mls/hr IVPB Q6H PAT Rx#:[id number] Zosyn 3.375 GM In 0.9 % Sodium 200 / 200 Chloride (Mini-Bag +) 100 ML @ 25 mls/hr IVPB Q8HR PAT Rx#: [id number] Potassium Chloride 10 mEq/100mL 200 / 200 10 meq In 100 ml @ 100 mls/hr IVPB Q1H PAT Rx#:[id number] Oral 20 / 20 Output: Urine 600 / 600 200 / 200 Gastric Tube Lavage Amount 1400 / 1400 250 / 250 Right Nare 1400 / 1400 250 / 250 Gastric Drainage 340 / 340 Other: Stool Size Moderate Stool Consistency soft formed Stool Characteristics Normal for Patient Stool Color Brown # Bowel Movements 1 Weight 74.616 kg Blood Glucose* 77 Patient Weight 02/25/18 23:59 Weight 74.616 kg - I&O's I&O's: Intake & Output 02/22/18 02/23/18 02/24/18 02/25/18 23:59 23:59 23:59 23:59 Intake Total 1999 / 1999 3365 / 3365 1571 / 1571 Output Total 650 / 650 2580 / 2580 2790 / 2790 Balance 1350 / 1350 785 / 785 -1219 / -1219 Weight 75.4 kg 76.3 kg 74.616 kg - Exam Lungs: bilateral: normal Chest: Normal S1, Normal S2 Extremities: Present: normal Abdomen: Present: soft, other (minimal tenderness, active BS) Incision OB: Present: normal - Labs Labs: Abnormal lab results RBC 3.64 M/mcL (3.82-4.97) L 02/25/18 05:54 Hgb 10.2 g/dL (11.5-15.4) L 02/25/18 05:54 Hct 30.7 % (35.3-44.9) L 02/25/18 05:54 MPV 9.3 fL (9.4-12.4) L 02/25/18 05:54 PT 12.8 Seconds (9.4-12.1) H 02/24/18 11:17 Potassium 3.4 mEq/L (3.5-5.1) L 02/25/18 05:54 Carbon Dioxide 21 mEq/L (23-29) L 02/25/18 05:54 Calcium 8.5 mg/dL (8.6-10.3) L 02/25/18 05:54 Albumin 3.4 g/dL (3.5-5.7) L 02/24/18 05:44 Albumin/Globulin Ratio 1.0 (1.1-2.2) L 02/24/18 05:44 Ur Specific [place] > 1.030 (1.010-1.025) H 02/23/18 12:30 Urine Bilirubin Small (Negative) H 02/23/18 12:30 Ur Leukocyte Esterase Moderate (Negative) H 02/23/18 12:30 Urine Microscopic WBC 15-30 per hpf (0-3) H 02/23/18 12:30 Ur Squamous Epith Cells Many per lpf (None-Few) H 02/23/18 12:30 Ur Culture Indicated? NO. (NO) A 02/23/18 12:30 Consult Discharge Plan - Plan Referrals: Cal Odom MD [Primary Care Provider] -
[2018-02-26] MEDS: Piperacillin/Tazobactam 3.375 GM in 0.9 % Sodium Chloride Mini Bag 100 ML IVPB SCH ×3 (00:05→16:13)
[2018-02-26] MEDS: Acetaminophen IV 1,000 MG/100 ML INFUS..BTL IVPB SCH ×3 (06:56→17:37)
[2018-02-26] MEDS: Pantoprazole 40 MG VIAL IVP SCH (07:59)
[2018-02-26] MEDS: D5% in 0.45% NACL w KCl 20 MEQ/1,000 ML MLS IVC SCH (08:04)
[2018-02-26 08:36] LABS: BUN/Creatinine Ratio 19 (6-26); Blood Urea Nitrogen 14 mg/dL (8-23); Calcium 8.8 mg/dL (8.6-10.3); Carbon Dioxide 23 mEq/L (23-29); Chloride 107 mEq/L (98-107); Glucose 116 mg/dL (70-105); Osmolality,Calculated 285 (280-300); Potassium 3.5 mEq/L (3.5-5.1); Sodium 137 mEq/L (136-145); eGFR For Non-African Americans > 60 (> 60)
--- NOTE | 2018-02-26 15:40 | OB/GYN Progress Note ---
Date of Encounter: 02/26/18 Time of Encounter: 15:38 - Assessment and Plan (1) Abnormal CT of the abdomen Current Visit: Yes Status: Acute Pt with probable partial bowel obstruction that seem to be resolving with conservative measures. She had SBFT today that showed delayed transit and somewhat dilated bowel c/w partial obstruction. Clinially she looks pretty good and seem plan per surgery will be to try clamping NG tube tomorrow if she continues to do well overnight. She has active BS and doesn't look toxic. 02/26- Pt's NG tube is out and pt doing well. Continued flatus and BM this am. Will advance diet as per surg request. (2) Low grade fever Current Visit: Yes Status: Acute No obvious active infection. The fluid collection as drained by IR showed only blood and cx's are pending. She remains on atb. 02/26- Remains on IV atb's. No obvious infection. Subjective - Subjective Principal diagnosis: decreased bowel function Interval history: Pt's NG tube came out, she is now without n/v, She is ambulating. Good pain control. Objective - Vital Signs Latest vital signs: Vital Signs Temp Pulse Resp BP Pulse Ox 02/26/18 07:30 98.2 F 57 16 154/69 95 02/26/18 04:20 98.5 F 51 16 128/76 96 02/26/18 00:00 98.3 F 57 16 127/61 97 02/25/18 21:00 98.3 F 57 16 129/70 95 02/25/18 16:40 98.2 F 60 14 132/70 94 Intake and Output 02/25/18 02/26/18 02/26/18 23:59 07:59 15:59 Intake Total 1261 / 1261 130 / 130 1225 / 1225 Output Total 650 / 650 675 / 675 550 / 550 Balance 611 / 611 -545 / -545 675 / 675 Intake: IV Fluids 1251 / 1251 100 / 100 1200 / 1200 KCl 20mEq IN D5%-0.45 NACL 20 1000 / 1000 meq In 1,000 ml @ 75 mls/hr IVC .[id number] PAT Rx#:[id number] Lactated Ringers 1,000 ML @ 125 751 / 751 mls/hr IVC .Q8H PAT Rx#: [id number] Ofirmev 1,000 mg/100 ml 1,000 200 / 200 100 / 100 mg In 100 ml @ 400 mls/hr IVPB Q6H PAT Rx#:[id number] Zosyn 3.375 GM In 0.9 % Sodium 100 / 100 100 / 100 100 / 100 Chloride (Mini-Bag +) 100 ML @ 25 mls/hr IVPB Q8HR PAT Rx#: [id number] Potassium Chloride 10 mEq/100mL 200 / 200 10 meq In 100 ml @ 100 mls/hr IVPB Q1H PAT Rx#:[id number] Oral 10 / 10 30 / 30 25 / 25 Output: Urine 300 / 300 575 / 575 100 / 100 Gastric Tube Lavage Amount 250 / 250 Right Nare 250 / 250 Gastric Drainage 100 / 100 100 / 100 450 / 450 Other: Stool Size Moderate Stool Consistency liquid Stool Color Green # Bowel Movements 1 Weight 75.551 kg Blood Glucose* 91 107 107 Patient Weight 02/26/18 23:59 Weight 75.551 kg - I&O's I&O's: Intake & Output 02/23/18 02/24/18 02/25/18 02/26/18 23:59 23:59 23:59 23:59 Intake Total 1999 / 1999 3365 / 3365 1681 / 1681 1355 / 1355 Output Total 650 / 650 2580 / 2580 2990 / 2990 1225 / 1225 Balance 1350 / 1350 785 / 785 -1309 / -1309 130 / 130 Weight 75.4 kg 76.3 kg 74.616 kg 75.551 kg - Exam Lungs: bilateral: normal Chest: Normal S1, Normal S2 Extremities: Present: normal Abdomen: Present: soft, other (active bs, minimal distension, appropriate tenderness) Incision OB: Present: intact - Labs Labs: Abnormal lab results RBC 3.64 M/mcL (3.82-4.97) L 02/25/18 05:54 Hgb 10.2 g/dL (11.5-15.4) L 02/25/18 05:54 Hct 30.7 % (35.3-44.9) L 02/25/18 05:54 MPV 9.3 fL (9.4-12.4) L 02/25/18 05:54 PT 12.8 Seconds (9.4-12.1) H 02/24/18 11:17 Glucose 116 mg/dL (70-105) H 02/26/18 07:52 POC Glucose 107 mg/dL (70-99) H 02/26/18 10:40 Albumin 3.4 g/dL (3.5-5.7) L 02/24/18 05:44 Albumin/Globulin Ratio 1.0 (1.1-2.2) L 02/24/18 05:44 Ur Specific [place] > 1.030 (1.010-1.025) H 02/23/18 12:30 Urine Bilirubin Small (Negative) H 02/23/18 12:30 Ur Leukocyte Esterase Moderate (Negative) H 02/23/18 12:30 Urine Microscopic WBC 15-30 per hpf (0-3) H 02/23/18 12:30 Ur Squamous Epith Cells Many per lpf (None-Few) H 02/23/18 12:30 Ur Culture Indicated? NO. (NO) A 02/23/18 12:30 Consult Discharge Plan - Plan Referrals: Cal Odom MD [Primary Care Provider] -
--- NOTE | 2018-02-26 16:45 | General Surgery Progress Note ---
Date of Encounter: 02/26/18 Time of Encounter: 13:10 - Assessment and Plan (1) Small bowel obstruction due to postoperative adhesions Current Visit: Yes Status: Acute pt ngt came out today she is passing flatus and had bm ok to start limited clears cont ivf hydration ambulate will continue to follow start reglan (2) GERD (gastroesophageal reflux disease) Current Visit: Yes Status: Chronic protonix Qualifiers: Esophagitis presence: esophagitis presence not specified Qualified Code(s): K21.9 - Gastro-esophageal reflux disease without esophagitis Subjective Patient reports: no new complaints, feels better, flatus, bowel movement Narrative: no nausea or emesis Objective Intake and Output 02/26/18 02/26/18 02/26/18 07:59 15:59 23:59 Intake Total 130 / 130 1325 / 1325 Output Total 675 / 675 750 / 750 Balance -545 / -545 575 / 575 Intake: IV Fluids 100 / 100 1300 / 1300 KCl 20mEq IN D5%-0.45 NACL 20 1000 / 1000 meq In 1,000 ml @ 75 mls/hr IVC .[id number] PAT Rx#:[id number] Ofirmev 1,000 mg/100 ml 1,000 200 / 200 mg In 100 ml @ 400 mls/hr IVPB Q6H PAT Rx#:[id number] Zosyn 3.375 GM In 0.9 % Sodium 100 / 100 100 / 100 Chloride (Mini-Bag +) 100 ML @ 25 mls/hr IVPB Q8HR PAT Rx#: [id number] Oral 30 / 30 25 / 25 Output: Urine 575 / 575 300 / 300 Gastric Drainage 100 / 100 450 / 450 Other: Stool Size Moderate Stool Consistency liquid Stool Color Green # Bowel Movements 1 Weight 75.551 kg Blood Glucose* 107 107 Patient Weight 02/26/18 23:59 Weight 75.551 kg - General physical appearance well developed, well nourished, no distress, no pain - Eyes PERRL, normal ocular movement - ENT normal mucosa, normocephalic - Respiratory normal expansion, clear to auscultation - Cardiovascular Cardiovascular exam: Present: RRR - Abdomen Abdomen: Present: bowel sounds present, soft, tender (only at middle incision). Absent: distended, guarding, rebound - Incision Incision: Present: clean and dry, intact - Musculoskeletal normal gait, normal posture - Psychiatric oriented to time, oriented to person, oriented to place, speech is normal, memory intact - Labs 02/25/18 05:54 02/26/18 07:52 Diabetes panel 02/26/18 Range/Units 07:52 Sodium 137 (136-145) mEq/L Potassium 3.5 (3.5-5.1) mEq/L Chloride 107 (98-107) mEq/L Carbon Dioxide 23 (23-29) mEq/L BUN 14 (8-23) mg/dL Creatinine 0.75 (0.60-1.20) mg/dL Glucose 116 H (70-105) mg/dL Calcium 8.8 (8.6-10.3) mg/dL Calcium panel 02/26/18 Range/Units 07:52 Calcium 8.8 (8.6-10.3) mg/dL Pituitary panel 02/26/18 Range/Units 07:52 Sodium 137 (136-145) mEq/L Potassium 3.5 (3.5-5.1) mEq/L Chloride 107 (98-107) mEq/L Carbon Dioxide 23 (23-29) mEq/L BUN 14 (8-23) mg/dL Creatinine 0.75 (0.60-1.20) mg/dL Glucose 116 H (70-105) mg/dL Calcium 8.8 (8.6-10.3) mg/dL Adrenal panel 02/26/18 Range/Units 07:52 Sodium 137 (136-145) mEq/L Potassium 3.5 (3.5-5.1) mEq/L Chloride 107 (98-107) mEq/L Carbon Dioxide 23 (23-29) mEq/L BUN 14 (8-23) mg/dL Creatinine 0.75 (0.60-1.20) mg/dL Glucose 116 H (70-105) mg/dL Calcium 8.8 (8.6-10.3) mg/dL - VTE Reasons for not Prescribing Prophylaxis: Treatment not Indicated - Low risk for VTE Documentation of Mechanical Device: Intermittent pneumatic compression device Consult Discharge Plan - Plan Referrals: Cal Odom MD [Primary Care Provider] -
[2018-02-26] MEDS: Metoclopramide 10 MG/2 ML VIAL IVP SCH (17:43)
[2018-02-27] MEDS: Metoclopramide 10 MG/2 ML VIAL IVP SCH ×2 (00:09→06:51)
[2018-02-27] MEDS: Acetaminophen IV 1,000 MG/100 ML INFUS..BTL IVPB SCH ×2 (00:09→06:51)
[2018-02-27] MEDS: Piperacillin/Tazobactam 3.375 GM in 0.9 % Sodium Chloride Mini Bag 100 ML IVPB SCH ×2 (00:42→08:27)
--- NOTE | 2018-02-27 07:29 | OB/GYN Progress Note ---
Date of Encounter: 02/27/18 Time of Encounter: 07:26 - Assessment and Plan (1) Abnormal CT of the abdomen Current Visit: Yes Status: Acute Pt with probable partial bowel obstruction that seem to be resolving with conservative measures. She had SBFT today that showed delayed transit and somewhat dilated bowel c/w partial obstruction. Clinially she looks pretty good and seem plan per surgery will be to try clamping NG tube tomorrow if she continues to do well overnight. She has active BS and doesn't look toxic. 02/26- Pt's NG tube is out and pt doing well. Continued flatus and BM this am. Will advance diet as per surg request. 02/27- Pt taking PO intake. + Flatus, +BM. Will leave management from here in regards to diet and d/c to surgery. (2) Low grade fever Current Visit: Yes Status: Acute No obvious active infection. The fluid collection as drained by IR showed only blood and cx's are pending. She remains on atb. 02/26- Remains on IV atb's. No obvious infection. Subjective - Subjective Principal diagnosis: decreased bowel function post op with n/v (resolved) Interval history: Pt's NG tube out and she is on a 300 cc diet. No n/v. + flatus, having loose Bm's without difficulty. Ambulating. Objective - Vital Signs Latest vital signs: Vital Signs Temp Pulse Resp BP Pulse Ox 02/27/18 05:00 98.8 F 53 16 145/81 96 02/26/18 19:55 98.1 F 62 16 137/67 96 02/26/18 07:30 98.2 F 57 16 154/69 95 Intake and Output 02/26/18 02/26/18 02/27/18 15:59 23:59 07:59 Intake Total 1325 / 1325 450 / 450 337 / 337 Output Total 750 / 750 100 / 100 500 / 500 Balance 575 / 575 350 / 350 -163 / -163 Intake: IV Fluids 1300 / 1300 200 / 200 100 / 100 KCl 20mEq IN D5%-0.45 NACL 20 1000 / 1000 meq In 1,000 ml @ 75 mls/hr IVC .[id number] PAT Rx#:[id number] Ofirmev 1,000 mg/100 ml 1,000 200 / 200 100 / 100 100 / 100 mg In 100 ml @ 400 mls/hr IVPB Q6H [facility] Rx#:[id number] Zosyn 3.375 GM In 0.9 % Sodium 100 / 100 100 / 100 Chloride (Mini-Bag +) 100 ML @ 25 mls/hr IVPB Q8HR [facility] Rx#: [id number] Oral 25 / 25 250 / 250 237 / 237 Output: Urine 300 / 300 100 / 100 500 / 500 Gastric Drainage 450 / 450 Other: Stool Size Small Stool Consistency liquid Stool Color Brown # Bowel Movements 1 Weight 75.296 kg Blood Glucose* 107 Patient Weight 02/27/18 23:59 Weight 75.296 kg - I&O's I&O's: Intake & Output 02/24/18 02/25/18 02/26/18 02/27/18 23:59 23:59 23:59 23:59 Intake Total 3365 / 3365 1681 / 1681 1905 / 1905 337 / 337 Output Total 2580 / 2580 2990 / 2990 1525 / 1525 500 / 500 Balance 785 / 785 -1309 / -1309 380 / 380 -163 / -163 Weight 76.3 kg 74.616 kg 75.551 kg 75.296 kg - Exam Lungs: bilateral: normal Chest: Normal S1, Normal S2 Extremities: Present: normal Abdomen: Present: soft Incision OB: Present: intact - Labs Labs: Abnormal lab results RBC 3.64 M/mcL (3.82-4.97) L 02/25/18 05:54 Hgb 10.2 g/dL (11.5-15.4) L 02/25/18 05:54 Hct 30.7 % (35.3-44.9) L 02/25/18 05:54 MPV 9.3 fL (9.4-12.4) L 02/25/18 05:54 PT 12.8 Seconds (9.4-12.1) H 02/24/18 11:17 Glucose 116 mg/dL (70-105) H 02/26/18 07:52 POC Glucose 107 mg/dL (70-99) H 02/26/18 10:40 Albumin 3.4 g/dL (3.5-5.7) L 02/24/18 05:44 Albumin/Globulin Ratio 1.0 (1.1-2.2) L 02/24/18 05:44 Ur Specific [place] > 1.030 (1.010-1.025) H 02/23/18 12:30 Urine Bilirubin Small (Negative) H 02/23/18 12:30 Ur Leukocyte Esterase Moderate (Negative) H 02/23/18 12:30 Urine Microscopic WBC 15-30 per hpf (0-3) H 02/23/18 12:30 Ur Squamous Epith Cells Many per lpf (None-Few) H 02/23/18 12:30 Ur Culture Indicated? NO. (NO) A 02/23/18 12:30 Consult Discharge Plan - Plan Referrals: Cal Odom MD [Primary Care Provider] -
[2018-02-27 07:53] LABS: BUN/Creatinine Ratio 11 (6-26); Blood Urea Nitrogen 8 mg/dL (8-23); Calcium 8.8 mg/dL (8.6-10.3); Carbon Dioxide 22 mEq/L (23-29); Chloride 107 mEq/L (98-107); Glucose 133 mg/dL (70-105); Osmolality,Calculated 280 (280-300); Potassium 3.4 mEq/L (3.5-5.1); Sodium 135 mEq/L (136-145); eGFR For Non-African Americans > 60 (> 60)
[2018-02-27] MEDS: Pantoprazole 40 MG VIAL IVP SCH (08:29)
[2018-02-27 09:42] VITALS: BP 146/73
[2018-02-27] MEDS ORDERED: Acetaminophen 325 MG TABLET PO PRN (11:36)
--- NOTE | 2018-02-27 11:36 | General Surgery Progress Note ---
Date of Encounter: 02/27/18 Time of Encounter: 11:34 - Assessment and Plan (1) Small bowel obstruction due to postoperative adhesions Current Visit: Yes Status: Acute tolerated clears ok to advance to soft sliv if tolerates soft diet without abdominal pain, distention, nausea ok to dc from surgical standpoint (2) GERD (gastroesophageal reflux disease) Current Visit: Yes Status: Chronic protonix Qualifiers: Esophagitis presence: esophagitis presence not specified Qualified Code(s): K21.9 - Gastro-esophageal reflux disease without esophagitis Subjective Patient reports: no new complaints, tolerating liquids well, flatus, bowel movement, afebrile Objective Vital Signs - Last 8 Hours Temp Pulse Resp BP Pulse Ox 02/27/18 07:30 98.6 F 51 16 146/73 99 02/27/18 05:00 98.8 F 53 16 145/81 96 Intake and Output 02/26/18 02/27/18 02/27/18 23:59 07:59 15:59 Intake Total 450 / 450 437 / 437 Output Total 100 / 100 500 / 500 700 / 700 Balance 350 / 350 -63 / -63 -700 / -700 Intake: IV Fluids 200 / 200 200 / 200 Ofirmev 1,000 mg/100 ml 1,000 100 / 100 100 / 100 mg In 100 ml @ 400 mls/hr IVPB Q6H PAT Rx#:[id number] Zosyn 3.375 GM In 0.9 % Sodium 100 / 100 100 / 100 Chloride (Mini-Bag +) 100 ML @ 25 mls/hr IVPB Q8HR PAT Rx#: [id number] Oral 250 / 250 237 / 237 Output: Urine 100 / 100 500 / 500 700 / 700 Other: Stool Size Small Moderate Stool Consistency liquid soft Stool Color Brown # Bowel Movements 1 1 Weight 75.296 kg Patient Weight 02/27/18 23:59 Weight 75.296 kg - General physical appearance well developed, well nourished, no distress - Eyes PERRL, normal ocular movement - ENT normal mucosa, dry mucosa - Neck Neck exam: trachea midline - Respiratory normal expansion, clear to auscultation - Cardiovascular Cardiovascular exam: Present: RRR - Abdomen Abdomen: Present: bowel sounds present, soft, non tender. Absent: distended - Genitourinary normal external genitalia - Integumentary no rash, no growths - Neurologic CN 2-12 grossly intact - Musculoskeletal normal gait, normal posture - Psychiatric oriented to time, oriented to person, oriented to place, speech is normal, memory intact - Labs 02/25/18 05:54 02/27/18 06:17 Diabetes panel 02/27/18 Range/Units 06:17 Sodium 135 L (136-145) mEq/L Potassium 3.4 L (3.5-5.1) mEq/L Chloride 107 (98-107) mEq/L Carbon Dioxide 22 L (23-29) mEq/L BUN 8 (8-23) mg/dL Creatinine 0.71 (0.60-1.20) mg/dL Glucose 133 H (70-105) mg/dL Calcium 8.8 (8.6-10.3) mg/dL Calcium panel 02/27/18 Range/Units 06:17 Calcium 8.8 (8.6-10.3) mg/dL Pituitary panel 02/27/18 Range/Units 06:17 Sodium 135 L (136-145) mEq/L Potassium 3.4 L (3.5-5.1) mEq/L Chloride 107 (98-107) mEq/L Carbon Dioxide 22 L (23-29) mEq/L BUN 8 (8-23) mg/dL Creatinine 0.71 (0.60-1.20) mg/dL Glucose 133 H (70-105) mg/dL Calcium 8.8 (8.6-10.3) mg/dL Adrenal panel 02/27/18 Range/Units 06:17 Sodium 135 L (136-145) mEq/L Potassium 3.4 L (3.5-5.1) mEq/L Chloride 107 (98-107) mEq/L Carbon Dioxide 22 L (23-29) mEq/L BUN 8 (8-23) mg/dL Creatinine 0.71 (0.60-1.20) mg/dL Glucose 133 H (70-105) mg/dL Calcium 8.8 (8.6-10.3) mg/dL - VTE Reasons for not Prescribing Prophylaxis: Treatment not Indicated - Low risk for VTE Documentation of Mechanical Device: Intermittent pneumatic compression device Consult Discharge Plan - Plan Referrals: Cal Odom MD [Primary Care Provider] -
[2018-02-27] MEDS ORDERED: Gabapentin 300 MG CAPSULE PO SCH (13:00)
[2018-02-28] MEDS ORDERED: Fluticasone Propionate Nasal 50 MCG/SPRAY BOTTLE NS SCH (09:00)
--- NOTE | 2018-03-17 07:38 | Discharge Summary ---
Date of Encounter: 02/27/18 Time of Encounter: 14:00 - Discharge Diagnosis (1) Abnormal CT of the abdomen Priority: Primary Status: Acute Comments: Pt with n/v and dilated bowel on CT c/w obstruction vs ileus. Now improved with bowel rest. Will d/c home. (2) Low grade fever Priority: Secondary Status: Acute Comments: resoloved - Discharge Medications Home Medications: Albuterol Sulfate [Ventolin Hfa] 2 puff IH Q4H PRN 02/10/18 [History] Atorvastatin [Lipitor] 10 mg PO HS 02/10/18 [History] Buspirone HCl [Buspar] 15 mg PO BID 02/10/18 [History] Cholecalciferol (D-3) [Vitamin D] 2,000 unit PO DAILY 02/10/18 [History] Fluticasone Propionate Nasal [Flonase] 1 spr NS DAILY 02/10/18 [History] Gabapentin [Neurontin] 300 mg PO QID 02/10/18 [History] Gabapentin [Neurontin] 600 mg PO QID 02/10/18 [History] Glucosamine Sulfate Dipot Chlr [Glucosamine] 1,000 mg PO DAILY 02/10/18 [Hist ory] Ibuprofen [Motrin Ib] 200 mg PO TID PRN 02/10/18 [History] Omeprazole [PriLOSEC] 40 mg PO DAILY 02/10/18 [History] Tramadol HCl [Ultram] 50 mg PO TID PRN 02/10/18 [History] Ibuprofen [Motrin] 600 mg PO Q6HR PRN #40 tab 02/11/18 [Rx] Allergies/Adverse Reactions: Allergy/AdvReac Type Severity Reaction Status Date / Time povidone-iodine Allergy Rash Verified 01/27/18 10:26 [From Betadine] quinine Allergy See Verified 01/27/18 10:26 Comments soap [From Betadine] Allergy Rash Verified 01/27/18 10:26 cefdinir AdvReac Diarrhea Verified 01/27/18 10:26 ezetimibe [From Zetia] AdvReac Muscle Pain Verified 01/27/18 10:26 Pneumococcal Vaccine AdvReac Redness of Verified 01/27/18 10:26 [From Pneumovax 23] Skin Data Procedures and tests throughout hospitalization: Laboratory Tests 02/23/18 02/23/18 02/23/18 11:27 11:27 12:30 WBC 13.6 H RBC 4.40 Hgb 12.2 Hct 37.2 MCV 84.5 MCH 27.7 L MCHC 32.8 RDW 13.6 Plt Count 471 H MPV 9.6 Immature Gran % 0.4 Seg Neutrophils % 69.6 Lymphocytes % 19.9 Monocytes % 9.2 Eosinophils % 0.7 Basophils % 0.2 Neutrophils # 9.5 H Lymphocytes # 2.7 Monocytes # 1.3 Eosinophils # 0.1 Basophils # 0.0 PT INR Sodium 136 Potassium 4.2 Chloride 101 Carbon Dioxide 25 BUN 26 H Creatinine 0.86 Est GFR ( Amer) > 60 Est GFR (Non-Af Amer) > 60 BUN/Creatinine Ratio 30 H Glucose 107 H POC Glucose Calculated Osmolality 287 Calcium 9.7 Phosphorus Magnesium Total Bilirubin 0.9 AST 21 ALT 14 Alkaline Phosphatase 83 Serum Total Protein 8.7 Albumin 4.2 Globulin 4.5 H Albumin/Globulin Ratio 0.9 L Lipase 12 Urine Color Dark Yellow Urine Clarity Clear Urine pH 6.0 Ur Specific [place] > 1.030 H Urine Protein Trace Urine Glucose (UA) Normal Urine Ketones Negative Urine Blood Negative Urine Nitrite Negative Urine Bilirubin Small H Urine Urobilinogen Normal Ur Leukocyte Esterase Moderate H Urine Microscopic RBC 0-3 Urine Microscopic WBC 15-30 H Ur Squamous Epith Cells Many H Urine Bacteria None Seen Hyaline Casts None Seen Ur Culture Indicated? NO. A Specimen Rejected 02/24/18 02/24/18 02/24/18 05:44 05:44 11:17 WBC 11.1 RBC 3.83 Hgb 10.7 L D Hct 32.6 L MCV 85.1 MCH 27.9 L MCHC 32.8 RDW 13.5 Plt Count 373 MPV 9.2 L Immature Gran % 0.3 Seg Neutrophils % 73.0 Lymphocytes % 15.0 Monocytes % 10.4 Eosinophils % 1.1 Basophils % 0.2 Neutrophils # 8.1 Lymphocytes # 1.7 Monocytes # 1.2 Eosinophils # 0.1 Basophils # 0.0 PT 12.8 H INR 1.1 Sodium 136 Potassium 3.7 Chloride 106 Carbon Dioxide 24 BUN 20 Creatinine 0.77 Est GFR ( Amer) > 60 Est GFR (Non-Af Amer) > 60 BUN/Creatinine Ratio 26 Glucose 96 POC Glucose Calculated Osmolality 284 Calcium 8.7 Phosphorus Magnesium Total Bilirubin 0.8 AST 17 ALT 11 Alkaline Phosphatase 67 Serum Total Protein 6.9 Albumin 3.4 L Globulin 3.5 Albumin/Globulin Ratio 1.0 L Lipase Urine Color Urine Clarity Urine pH Ur Specific [place] Urine Protein Urine Glucose (UA) Urine Ketones Urine Blood Urine Nitrite Urine Bilirubin Urine Urobilinogen Ur Leukocyte Esterase Urine Microscopic RBC Urine Microscopic WBC Ur Squamous Epith Cells Urine Bacteria Hyaline Casts Ur Culture Indicated? Specimen Rejected 02/25/18 02/25/18 02/25/18 05:54 05:54 18:51 WBC 5.2 D RBC 3.64 L Hgb 10.2 L Hct 30.7 L MCV 84.3 MCH 28.0 MCHC 33.2 RDW 13.2 Plt Count 318 MPV 9.3 L Immature Gran % 0.2 Seg Neutrophils % 54.8 Lymphocytes % 27.6 Monocytes % 15.9 Eosinophils % 1.3 Basophils % 0.2 Neutrophils # 2.9 Lymphocytes # 1.4 Monocytes # 0.8 Eosinophils # 0.1 Basophils # 0.0 PT INR Sodium 136 Potassium 3.4 L Chloride 105 Carbon Dioxide 21 L BUN 15 Creatinine 0.69 Est GFR ( Amer) > 60 Est GFR (Non-Af Amer) > 60 BUN/Creatinine Ratio 22 Glucose 86 POC Glucose 77 Calculated Osmolality 282 Calcium 8.5 L Phosphorus 3.4 Magnesium 1.9 Total Bilirubin AST ALT Alkaline Phosphatase Serum Total Protein Albumin Globulin Albumin/Globulin Ratio Lipase Urine Color Urine Clarity Urine pH Ur Specific [place] Urine Protein Urine Glucose (UA) Urine Ketones Urine Blood Urine Nitrite Urine Bilirubin Urine Urobilinogen Ur Leukocyte Esterase Urine Microscopic RBC Urine Microscopic WBC Ur Squamous Epith Cells Urine Bacteria Hyaline Casts Ur Culture Indicated? Specimen Rejected 02/25/18 02/26/18 02/26/18 20:53 04:58 07:52 WBC RBC Hgb Hct MCV MCH MCHC RDW Plt Count MPV Immature Gran % Seg Neutrophils % Lymphocytes % Monocytes % Eosinophils % Basophils % Neutrophils # Lymphocytes # Monocytes # Eosinophils # Basophils # PT INR Sodium 137 Potassium 3.5 Chloride 107 Carbon Dioxide 23 BUN 14 Creatinine 0.75 Est GFR ( Amer) > 60 Est GFR (Non-Af Amer) > 60 BUN/Creatinine Ratio 19 Glucose 116 H POC Glucose 91 107 H Calculated Osmolality 285 Calcium 8.8 Phosphorus Magnesium Total Bilirubin AST ALT Alkaline Phosphatase Serum Total Protein Albumin Globulin Albumin/Globulin Ratio Lipase Urine Color Urine Clarity Urine pH Ur Specific [place] Urine Protein Urine Glucose (UA) Urine Ketones Urine Blood Urine Nitrite Urine Bilirubin Urine Urobilinogen Ur Leukocyte Esterase Urine Microscopic RBC Urine Microscopic WBC Ur Squamous Epith Cells Urine Bacteria Hyaline Casts Ur Culture Indicated? Specimen Rejected 02/26/18 02/27/18 02/27/18 10:40 06:17 06:17 WBC RBC Hgb Hct MCV MCH MCHC RDW Plt Count MPV Immature Gran % Seg Neutrophils % Lymphocytes % Monocytes % Eosinophils % Basophils % Neutrophils # Lymphocytes # Monocytes # Eosinophils # Basophils # PT INR Sodium 135 L Potassium 3.4 L Chloride 107 Carbon Dioxide 22 L BUN 8 Creatinine 0.71 Est GFR ( Amer) > 60 Est GFR (Non-Af Amer) > 60 BUN/Creatinine Ratio 11 Glucose 133 H POC Glucose 107 H Calculated Osmolality 280 Calcium 8.8 Phosphorus Magnesium Total Bilirubin AST ALT Alkaline Phosphatase Serum Total Protein Albumin Globulin Albumin/Globulin Ratio Lipase Urine Color Urine Clarity Urine pH Ur Specific [place] Urine Protein Urine Glucose (UA) Urine Ketones Urine Blood Urine Nitrite Urine Bilirubin Urine Urobilinogen Ur Leukocyte Esterase Urine Microscopic RBC Urine Microscopic WBC Ur Squamous Epith Cells Urine Bacteria Hyaline Casts Ur Culture Indicated? Specimen Rejected Labelling - Impressions ITS Impressions Abdomen/Pelvis CT 02/23/18 11:41 IMPRESSION: 1. Small bowel obstruction with distended mildly edematous small bowel loops with gradual transition in the mid to distal small bowel at the level of the right hemipelvis. The changes may be related to adhesions or evolving postoperative collection in the right hemipelvis. 2. Complex fluid in the right hemipelvis measuring 3.4 x 6.4 cm. This may represent an area of hemorrhage but is concerning for possible abscess. Continued follow-up recommended. 3. Liquid stool throughout the colon. Some mild distention of the appendix with no significant periappendiceal inflammatory changes. 4. Hepatic steatosis. D/ / 02/23/2018 13:49:28 Chris Mir MD / bcarter Interpreting Provider: Chris Mir MD Chest X-Ray 02/23/18 11:42 IMPRESSION: No acute process. D/ / Douglas Davis MD / Douglas Davis MD Interpreting Provider: Douglas Davis MD X-Ray 02/23/18 23:25 IMPRESSION: The enteric tube is in good position in the stomach. D/ / Aden Najera MD / Aden Najera MD Interpreting Provider: Aden Najera MD Needle Aspiration CT 02/24/18 00:00 IMPRESSION: CT-guided aspiration of 10 cc of blood from a small postoperative hematoma in the deep pelvis. No drain was left in place as this appears to be a tiny hematoma and shows no signs of an abscess. The aspirated fluid was sent for cultures as requested. No immediate complications. D/ / Krunal Bustillo MD / Krunal Bustillo MD Interpreting Provider: Krunal Bustillo MD X-Ray 02/24/18 09:12 IMPRESSION: Persistent air-filled dilated loops of small bowel in keeping with history of small bowel obstruction. D/ / 02/24/2018 10:29:04 Lucita Akers MD / artur Interpreting Provider: Lucita Akers MD Small Bowel X-Ray 02/25/18 08:16 IMPRESSION: 1. Delayed transit time to the terminal ileum measuring 4 hours and 30 minutes. 2. Dilated loops of small bowel measuring up to 4.4 cm. Findings are compatible with partial small bowel obstruction. D/ / 02/25/2018 14:55:03 Anastacia Mcdowell MD / Florina Balbuena Interpreting Provider: Anastacia Mcdowell MD - Additional Comments As per morning progress note, pt doing better, will d/c home. +BM, n/v and taking regular diet. Date of admission: 02/23/18 21:13 Primary care physician: Cal Odom MD Consults: 02/23/18 14:17 Consult to Surgery [CONS] Routine Consulting Provider: Surgery [facility] Reason for Consult: SBO Call Completed: Yes 02/24/18 09:39 Consult to Interventional Radiology [CONS] Routine Consulting Provider: Radiology Interventional Cols Reason for Consult: Possible Drain placement for fluid collection per CT. Spoke with [facility] for Dr. Bustillo Time Notified: 09:41 Call Completed: Yes - Patient Status Disposition: Home, Self-Care Condition: Good Functional capacity at discharge: independent ambulation Overall status at discharge: patient is progressing back to baseline - Discharge Instructions Instructions: Bowel Obstruction (GEN) Follow Up With: Burke Chun MD [Partnered Physician] - Hospital Course [employer] Time Attestation: Total time spent providing and/or coordinating discharge services: Exam - Constitutional Vitals: Temp Pulse Resp BP Pulse Ox 98.6 F 51 16 146/73 99 02/27/18 07:30 02/27/18 07:30 02/27/18 07:30 02/27/18 07:30 02/27/18 07:30 - VTE Reasons for not Prescribing Prophylaxis: Treatment not Indicated - Low risk for VTE Documentation of Mechanical Device: Intermittent pneumatic compression device
== END 2018-02-27 16:13 | disposition home or self-care (01) | DRG 760 ==
LOC: 1NENUOBS 11:14 → EMEROOARM 11:14 → 1NENUOBS 15:52
PROVIDERS: ADMIT Obstetrics & Gynecology; ATTEND Obstetrics & Gynecology
PROC: IRDRAIN (2018-02-24 12:00)

== ENCOUNTER 2018-12-04 10:39 | Observation (INO) ==
[2018-12-04 11:37] LABS: Basophils # 0.1 K/mcL (0.0-0.2); Basophils % 0.3 %; Eosinophils # 0.1 K/mcL (0.0-0.6); Eosinophils % 0.4 %; Hematocrit 43.8 % (35.3-44.9); Hemoglobin 14.3 g/dL (11.5-15.4); Immature Granulocytes % 0.3 % (0-4); Lymphocytes # 2.7 K/mcL (0.6-4.6); Mean Corpuscular HGB Conc 32.6 g/dL (31.6-35.5); Mean Corpuscular Hemoglobin 28.7 pg (28.0-33.3); Mean Corpuscular Volume 87.8 fL (83.0-100.0); Monocytes # 1.7 K/mcL (0.0-1.3); Monocytes % 11.4 %; Neutrophils # 10.5 K/mcL (1.6-8.9); Platelet Count 263 K/mcL (140-400); Red Blood Count 4.99 M/mcL (3.82-4.97); Red Cell Distribution Width 13.7 % (11.5-14.5); Segmented Neutrophils % 69.6 %; White Blood Count 15.2 K/mcL (4.3-11.1)
[2018-12-04 11:39] LABS: Bilirubin,Urine Negative (Negative); Blood,Urine Negative (Negative); Clarity,Urine Clear (Clear); Color,Urine Yellow (Yellow); Glucose,Urine (UA) Normal (Normal); Ketones,Urine Negative (Negative); Leukocyte Esterase,Urine Trace (Negative); Nitrite,Urine Negative (Negative); PH,Urine 6.5 pH Units (5.0-8.0); Protein,Urine Trace mg/dL (Neg-Trace); Specific Gravity,Urine 1.027 (1.010-1.025); Urobilinogen,Urine Normal (Normal)
[2018-12-04 11:56] LABS: Alanine Aminotransferase 16 Units/L (7-52); Albumin 4.4 g/dL (3.5-5.7); Albumin/Globulin Ratio 1.2 (1.1-2.2); Alkaline Phosphatase 92 Units/L (34-104); Aspartate Amino Transferase 20 Units/L (13-39); BUN/Creatinine Ratio 19 (6-26); Bilirubin,Direct 0.1 mg/dL (0.0-0.2); Bilirubin,Indirect 0.4 mg/dL (0.0-1.2); Bilirubin,Total 0.5 mg/dL (0.3-1.0); Blood Urea Nitrogen 16 mg/dL (8-23); Calcium 9.4 mg/dL (8.6-10.3); Carbon Dioxide 27 mEq/L (23-29); Chloride 104 mEq/L (98-107); Globulin 3.6 g/dL (2.4-3.5); Glucose 102 mg/dL (70-105); Lipase 9 Units/L (11-82); Osmolality,Calculated 285 (280-300); Potassium 3.8 mEq/L (3.5-5.1); Sodium 137 mEq/L (136-145); eGFR For African Americans > 60 (> 60); eGFR For Non-African Americans > 60 (> 60)
[2018-12-04] MEDS ORDERED: Ketorolac 15 MG/ML VIAL IVP ONE (12:04)
[2018-12-04 12:09] LABS: RBC,Urine 0-3 per hpf (0-3); Squamous Epithelial Cell,Urine Few per lpf (None-Few); WBC,Urine 0-3 per hpf (0-3)
--- NOTE | 2018-12-04 12:09 | Emergency Department Note ---
Disposition Clinical Impression: Acute appendicitis Qualifiers: Acute appendicitis type: with localized peritonitis Appendicitis gangrene presence: unspecified whether gangrene present Appendicitis perforation presence: without perforation Appendicitis abscess presence: unspecified whether abscess present Qualified Code(s): K35.30 - Acute appendicitis with localized peritonitis, without perforation or gangrene Disposition: Admitted As Inpatient Condition: Fair Referrals: Cal Odom MD [Primary Care Provider] - Forms: ED Satisfaction Letter, Work/School Release Time of Disposition: 12:16 Abdominal Pain HPI - General Chief Complaint: ED Abdominal Pain Stated Complaint: abd pain, r/o appy Time Seen by Provider: 12/04/18 11:04 Source: patient Mode of arrival: ambulatory Limitations: no limitations Nursing Notes Reviewed: Yes Vital Signs Reviewed: Yes - History of Present Illness HPI Narrative: 68F with PMHx of asthma and hyperlipidemia presents emergency Department with 2 days of right lower quadrant abdominal pain. Patient states that the pain started yesterday morning and she was able to tolerate some food that she has not been feeling hungry since then due to the abdominal pain. She does feel slightly nauseous now. She states the pain is worse with moving and has been continuing to get worse over the past 2 days. She has never had any abdominal pain like this before. Only past surgical history was a total hysterectomy. She does still have her gallbladder and appendix. Patient denies any difficulties with urination or defecation. She has not had any blood in her stools or dark tarry stools. Last time she had a bowel movement was today and she has been still passing gas. She denies fever, chills, chest pain, shortness of breath, dysuria. Pain Scale: 8 - Related Data Home Medications Medication Instructions Recorded Confirmed Albuterol Sulfate [Ventolin Hfa] 2 puff IH Q4H PRN 02/10/18 12/04/18 Atorvastatin [Lipitor] 10 mg PO HS 02/10/18 12/04/18 Buspirone HCl [Buspar] 15 mg PO BID 02/10/18 12/04/18 Cholecalciferol (D-3) [Vitamin D] 2,000 unit PO DAILY 02/10/18 12/04/18 Fluticasone Propionate Nasal 1 spr NS DAILY 02/10/18 12/04/18 [Flonase] Gabapentin [Neurontin] 600 mg PO QID 02/10/18 12/04/18 Glucosamine Sulfate Dipot Chlr 1,000 mg PO DAILY 02/10/18 12/04/18 [Glucosamine] Ibuprofen [Motrin Ib] 200 mg PO TID PRN 02/10/18 12/04/18 Omeprazole [PriLOSEC] 40 mg PO DAILY 02/10/18 12/04/18 Tramadol HCl [Ultram] 50 mg PO TID PRN 02/10/18 12/04/18 Previous Rx's Medication Instructions Recorded Ibuprofen [Motrin] 600 mg PO Q6HR PRN #40 tab 02/11/18 Allergies Allergy/AdvReac Type Severity Reaction Status Date / Time povidone-iodine Allergy Rash Verified 01/27/18 10:26 [From Betadine] quinine Allergy See Verified 01/27/18 10:26 Comments soap [From Betadine] Allergy Rash Verified 01/27/18 10:26 cefdinir AdvReac Diarrhea Verified 01/27/18 10:26 ezetimibe [From Zetia] AdvReac Muscle Pain Verified 01/27/18 10:26 Pneumococcal Vaccine AdvReac Redness of Verified 01/27/18 10:26 [From Pneumovax 23] Skin All systems ED: reviewed and negative except as stated. Review of Systems: As Per HPI Constitutional: Denies: fever, chills, weakness Cardiovascular: Denies: chest pain, palpitations, dyspnea on exertion Respiratory: Denies: cough, dyspnea, wheezes Gastrointestinal: Reports: abdominal pain, nausea. Denies: vomiting, diarrhea, constipation, melena, hematochezia Genitourinary: Denies: dysuria Musculoskeletal: Denies: back pain, neck pain Neurological: Denies: headache Endocrine: Denies: fatigue Abdominal Pain PMH - Past Medical History Medical history: Reports: asthma, GERD, hyperlipidemia Psychiatric history: Reports: anxiety - Social History Smoking status: Never smoker Alcohol use: Reports: none Drug use: Reports: none Physical Exam - General Limitations: no limitations General appearance: alert, in no apparent distress - Head Head exam: atraumatic, normocephalic - Eye Eye exam: Present: normal appearance, EOMI - Chest Chest inspection: Present: normal inspection. Absent: tenderness, rash - Respiratory Respiratory exam: Present: normal lung sounds bilaterally. Absent: wheezes - Cardiovascular Cardiovascular exam: Present: regular rate, normal rhythm - Abdominal Exam Abdominal exam: Present: soft, tenderness, rebound, tenderness at McBurney's Point. Absent: distention, guarding, Francis's sign Abdominal tenderness: Present: RLQ, moderate - Extremities Exam Extremities exam: Present: normal inspection. Absent: tenderness, pedal edema - Neurological Exam Neurological exam: Present: alert, oriented X3 - Psychiatric Psychiatric exam: Present: normal affect, normal mood - Skin Skin exam: Present: warm, dry, intact Course Vital Signs Temperature 98.7 F 12/04/18 10:47 Pulse Rate 84 12/04/18 10:47 Respiratory Rate 18 12/04/18 10:47 Blood Pressure 134/79 12/04/18 10:47 O2 Sat by Pulse Oximetry 94 12/04/18 10:47 Temperature 98.7 F 12/04/18 11:19 Pulse Rate 77 12/04/18 11:29 Respiratory Rate 18 12/04/18 11:29 Blood Pressure 146/81 12/04/18 11:29 O2 Sat by Pulse Oximetry 100 12/04/18 11:29 Oxygen Delivery Oxygen Delivery Room Air Abdominal Pain - MDM Narrative Medical decision making narrative: Patient presents with right lower quadrant pain, nausea and concerns for appendicitis which started yesterday. We will obtain basic labs, EKG and a CAT scan of the patient's abdomen and pelvis. 1200 - CAT scan shows evidence of acute appendicitis. Spoke with Dr. Bowen, on- call surgeon, who was made aware of this patient and will look at the CAT scan and evaluate the patient. Patient requested Toradol for the pain and Dr. Gamino is agreeable with this medication. 1214 - patient will be taken to surgery by Dr. Bowen. He has requested 2 g of Mefoxin to be ordered for the patient prior to surgery. Labs are significant for an elevated white count at 15. - Medical Records Medical records reviewed: Yes I reviewed the patient's medical records. - Lab Data Lab results reviewed: Yes I reviewed the patient's lab results. Result diagrams: 12/04/18 11:08 12/04/18 11:08 Lab Results 12/04/18 12/04/18 12/04/18 Range/Units 11:08 11:08 11:08 WBC 15.2 H (4.3-11.1) K/mcL RBC 4.99 H (3.82-4.97) M/mcL Hgb 14.3 (11.5-15.4) g/dL Hct 43.8 (35.3-44.9) % MCV 87.8 (83.0-100.0) fL MCH 28.7 (28.0-33.3) pg MCHC 32.6 (31.6-35.5) g/dL RDW 13.7 (11.5-14.5) % Plt Count 263 (140-400) K/mcL MPV 10.0 (9.4-12.4) fL Immature Gran % 0.3 (0-4) % Seg Neutrophils % 69.6 % Lymphocytes % 18.0 % Monocytes % 11.4 % Eosinophils % 0.4 % Basophils % 0.3 % Neutrophils # 10.5 H (1.6-8.9) K/mcL Lymphocytes # 2.7 (0.6-4.6) K/mcL Monocytes # 1.7 H (0.0-1.3) K/mcL Eosinophils # 0.1 (0.0-0.6) K/mcL Basophils # 0.1 (0.0-0.2) K/mcL Sodium 137 (136-145) mEq/L Potassium 3.8 (3.5-5.1) mEq/L Chloride 104 (98-107) mEq/L Carbon Dioxide 27 (23-29) mEq/L BUN 16 (8-23) mg/dL Creatinine 0.83 (0.60-1.20) mg/dL Est GFR ( Amer) > 60 (> 60) Est GFR (Non-Af Amer) > 60 (> 60) BUN/Creatinine Ratio 19 (6-26) Glucose 102 (70-105) mg/dL Calculated Osmolality 285 (280-300) Calcium 9.4 (8.6-10.3) mg/dL Total Bilirubin 0.5 (0.3-1.0) mg/dL Direct Bilirubin 0.1 (0.0-0.2) mg/dL Indirect Bilirubin 0.4 (0.0-1.2) mg/dL AST 20 (13-39) Units/L ALT 16 (7-52) Units/L Alkaline Phosphatase 92 (34-104) Units/L Serum Total Protein 8.0 (6.4-8.9) g/dL Albumin 4.4 (3.5-5.7) g/dL Globulin 3.6 H (2.4-3.5) g/dL Albumin/Globulin Ratio 1.2 (1.1-2.2) Lipase 9 L (11-82) Units/L Urine Color Yellow (Yellow) Urine Clarity Clear (Clear) Urine pH 6.5 (5.0-8.0) pH Units Ur Specific [place] 1.027 H (1.010-1.025) Urine Protein Trace (Neg-Trace) mg/dL Urine Glucose (UA) Normal (Normal) mg/dL Urine Ketones Negative (Negative) mg/dL Urine Blood Negative (Negative) Urine Nitrite Negative (Negative) Urine Bilirubin Negative (Negative) Urine Urobilinogen Normal (Normal) mg/dL Ur Leukocyte Esterase Trace H (Negative) - Radiology Data Radiology results reviewed: Yes I reviewed the patient's radiology results. - EKG Data EKG attestation: Yes I reviewed and interpreted this EKG. EKG results narrative: EKG obtained at 1116 on 12/04/2018 Heart rate 76 bpm, VT interval 161, QRS duration 102, QT 397, QTC 447 Sinus rhythm without any ST segment elevations or depressions. No acute T-wave abnormalities. No significant changes when compared to previous EKG dated 08/02/2018 Attestation Statement - Attestation Attestation: I have seen this patient with the resident physician, I have personally evaluated this patient. I had reviewed the chart and document dictation by the resident physician and aM in agreement with the information documented by the [facility] physician. Please see documentation by the resident physician for complete chart including past medical history, family medical history, review of systems, current history and physical and laboratory and imaging studies. I was present for all procedures, provided direct supervision for all procedures, was present for the entirety of all procedures and provided direct guidance during the procedures. Please see documentation by the resident physician for any procedures performed. I have reviewed all interpretations of EKGs, and reviewed all EKGs performed on patient's as well. I have also reviewed reports of imaging as provided by radiology. Patient presented to the emergency department with chief complaint of one and half to 2 days of progressively increasing right lower quadrant pain worse with movement and worse if she touches her abdomen. The patient has had decreased appetite decreased by mouth intake secondary to discomfort with a little nausea no vomiting no diarrhea no constipation no black or bloody stool no urinary symptoms she is status post total abdominal hysterectomy no other abdominal surgeries. She denies headache neck pain chest pain shortness of breath cough or sputum production she has not documented a fever she has intermittently felt chilled. She denies pain into her back or pain down her leg she denies any trauma. On exam she is alert oriented 3 uncomfortable and appears nontoxic in appearance cranial nerves are intact oropharynx is normal lungs are clear heart is regular. The abdomen is soft nondistended there is localized peritoneal sign in the right lower quadrant with positive rebound and some guarding, positive Rovsing sign. There is some shake tenderness and percussion tenderness in the right lower quadrant only no peritoneal sign generally. No right upper quadrant tenderness tenderness is maximal over McBurney's point. No palpable hernias or palpable or pulsatile masses. Skin is warm dry without rash petechiae or jaundice. Basic laboratory studies ordered CT scan ordered patient offered pain medication initially declined she was then willing to take some pain medication and she was given a small dose of Toradol. CT scan shows appendicitis without perforation surgery contacted patient to be admitted, antibiotics ordered at the recommendations and request of surgery patient going to the OR with surgery Dr. Gamino for appendicitis.
[2018-12-04 12:10] LABS: Bacteria,Urine Few per hpf (None-Few)
[2018-12-04] MEDS ORDERED: cefOXitin 2,000 MG in Water for inj. (sterile) 20 ML IVP ONE (12:13)
--- NOTE | 2018-12-04 12:22 | Acute Care Surgery H&P ---
Date of Encounter: 12/04/18 Time of Encounter: 12:15 History of Present Illness Chief complaint: Abdominal pain HPI: Ms. Hendrix is a 68 year old female Who developed abdominal pain 2 days ago. The pain became much worse yesterday. The pain localized right lower quadrant yesterday. The patient awoke today and the pain was unrelenting. She does have pain with motion. She is anorexic. She sought evaluation in the emergency department. CAT scan of the abdomen de monstrated acute appendicitis. She has a leukocytosis of 15,500. I personally examined the patient and reviewed the CAT scan of the abdomen. CAT scan is significant for acute appendicitis with periappendiceal inflammation. There does not appear to be an abscess. There is no fluid in the pelvis. Next I have recommended laparoscopic appendectomy. The patient agrees and we will proceed on an urgent basis Past Med Surg Social Fam HX - Past Medical History Medical history: asthma, GERD, hyperlipidemia Additional medical history: anemia, fibromyalgia Psychiatric history: anxiety - Past Surgical History Surgical History: hysterectomy Additional surgical history: robotic sacrocolpopexy 02/10/2018 (Dr. Chun) - Social History Smoking Status: Never smoker Smokeless Tobacco Status: No Alcohol use: none Drug use: none Medications and Allergies Albuterol Sulfate [Ventolin Hfa] 2 puff IH Q4H PRN 02/10/18 [History] Atorvastatin [Lipitor] 10 mg PO HS 02/10/18 [History] Buspirone HCl [Buspar] 15 mg PO BID 02/10/18 [History] Cholecalciferol (D-3) [Vitamin D] 2,000 unit PO DAILY 02/10/18 [History] Fluticasone Propionate Nasal [Flonase] 1 spr NS DAILY 02/10/18 [History] Gabapentin [Neurontin] 600 mg PO QID 02/10/18 [History] Glucosamine Sulfate Dipot Chlr [Glucosamine] 1,000 mg PO DAILY 02/10/18 [History] Ibuprofen [Motrin Ib] 200 mg PO TID PRN 02/10/18 [History] Omeprazole [PriLOSEC] 40 mg PO DAILY 02/10/18 [History] Tramadol HCl [Ultram] 50 mg PO TID PRN 02/10/18 [History] Ibuprofen [Motrin] 600 mg PO Q6HR PRN #40 tab 02/11/18 [Rx] Allergy/AdvReac Type Severity Reaction Status Date / Time povidone-iodine Allergy Rash Verified 01/27/18 10:26 [From Betadine] quinine Allergy See Verified 01/27/18 10:26 Comments soap [From Betadine] Allergy Rash Verified 01/27/18 10:26 cefdinir AdvReac Diarrhea Verified 01/27/18 10:26 ezetimibe [From Zetia] AdvReac Muscle Pain Verified 01/27/18 10:26 Pneumococcal Vaccine AdvReac Redness of Verified 01/27/18 10:26 [From Pneumovax 23] Skin Review of Systems All systems PM: The remainder of the systems were reviewed and are negative General Surgery Exam Initial Vital Signs Temp Pulse Resp BP Pulse Ox 98.7 F 84 18 134/79 94 12/04/18 10:47 12/04/18 10:47 12/04/18 10:47 12/04/18 10:47 12/04/18 10:47 - General physical appearance well developed, well nourished, moderate distress, moderate pain - Neck no masses, no bruits, trachea midline, no lymphadectomy, no venous distension - Respiratory normal expansion, normal respiratory effort, clear to auscultation - Cardiovascular Cardiovascular exam: Present: RRR, no murmurs/rubs/gallops - Abdomen Abdomen general surgery: Present: bowel sounds present, tender Abdominal Tenderness: Present: RLQ (Involuntary guarding and rebound tenderness present over McBurney's point) - Integumentary Integumentary general surgery: Present: warm and dry, no abnormal pigmentation - Neurologic Present: CN 2-12 grossly intact, normal coordination, normal sensation - Psychiatric Psychiatric general surgery: Present: appropriate, oriented to person, oriented to place, oriented to time, speech is normal, memory intact Results - Labs 12/04/18 11:08 12/04/18 11:08 Abnormal lab results WBC 15.2 K/mcL (4.3-11.1) H 12/04/18 11:08 RBC 4.99 M/mcL (3.82-4.97) H 12/04/18 11:08 Neutrophils # 10.5 K/mcL (1.6-8.9) H 12/04/18 11:08 Monocytes # 1.7 K/mcL (0.0-1.3) H 12/04/18 11:08 Globulin 3.6 g/dL (2.4-3.5) H 12/04/18 11:08 Lipase 9 Units/L (11-82) L 12/04/18 11:08 Ur Specific [place] 1.027 (1.010-1.025) H 12/04/18 11:08 Ur Leukocyte Esterase Trace (Negative) H 12/04/18 11:08 Ur Culture Indicated? YES (NO) A 12/04/18 11:08 Diabetes panel 12/04/18 Range/Units 11:08 Sodium 137 (136-145) mEq/L Potassium 3.8 (3.5-5.1) mEq/L Chloride 104 (98-107) mEq/L Carbon Dioxide 27 (23-29) mEq/L BUN 16 (8-23) mg/dL Creatinine 0.83 (0.60-1.20) mg/dL Glucose 102 (70-105) mg/dL Calcium 9.4 (8.6-10.3) mg/dL AST 20 (13-39) Units/L ALT 16 (7-52) Units/L Alkaline Phosphatase 92 (34-104) Units/L Albumin 4.4 (3.5-5.7) g/dL Calcium panel 12/04/18 Range/Units 11:08 Calcium 9.4 (8.6-10.3) mg/dL Albumin 4.4 (3.5-5.7) g/dL Pituitary panel 12/04/18 Range/Units 11:08 Sodium 137 (136-145) mEq/L Potassium 3.8 (3.5-5.1) mEq/L Chloride 104 (98-107) mEq/L Carbon Dioxide 27 (23-29) mEq/L BUN 16 (8-23) mg/dL Creatinine 0.83 (0.60-1.20) mg/dL Glucose 102 (70-105) mg/dL Calcium 9.4 (8.6-10.3) mg/dL Adrenal panel 12/04/18 Range/Units 11:08 Sodium 137 (136-145) mEq/L Potassium 3.8 (3.5-5.1) mEq/L Chloride 104 (98-107) mEq/L Carbon Dioxide 27 (23-29) mEq/L BUN 16 (8-23) mg/dL Creatinine 0.83 (0.60-1.20) mg/dL Glucose 102 (70-105) mg/dL Calcium 9.4 (8.6-10.3) mg/dL Total Bilirubin 0.5 (0.3-1.0) mg/dL AST 20 (13-39) Units/L ALT 16 (7-52) Units/L Alkaline Phosphatase 92 (34-104) Units/L Albumin 4.4 (3.5-5.7) g/dL All other labs normal. - Imaging CT scan - abdomen: image reviewed (I personally reviewed the CAT scan of the abdomen. Findings are consistent with acute appendicitis. There is periappendiceal inflammation without abscess formation)
[2018-12-04 12:36] LABS: Prothrombin Time 11.9 Seconds (9.4-12.1)
[2018-12-04] MEDS ORDERED: 0.9 % Sodium Chloride 1,000 ML IVC SCH (14:09)
--- NOTE | 2018-12-04 14:40 | Anesthesia Evaluation PreOp ---
Date of Encounter: 12/04/18 Time of Encounter: 14:38 - Past History Planned Operation: Lap Appy Cardiac History: Hyperlipidemia Pulmonary History: Asthma MACHINING ASSOCIATE History: Other (Fibromyalgia, Anxiety/depression) Other Medical History: GERD Anesthesia History: No Prior Anesthetic Complications, Past Anesthesia (Hyster, Robotic Sacrocolpopexy 02/2018) Alcohol Use: none Drug use: none Medications and Allergies Albuterol Sulfate [Ventolin Hfa] 2 puff IH Q4H PRN 02/10/18 [History] Atorvastatin [Lipitor] 10 mg PO HS 02/10/18 [History] Buspirone HCl [Buspar] 15 mg PO BID 02/10/18 [History] Cholecalciferol (D-3) [Vitamin D] 2,000 unit PO DAILY 02/10/18 [History] Fluticasone Propionate Nasal [Flonase] 1 spr NS DAILY 02/10/18 [History] Gabapentin [Neurontin] 600 mg PO QID 02/10/18 [History] Glucosamine Sulfate Dipot Chlr [Glucosamine] 1,000 mg PO DAILY 02/10/18 [History] Ibuprofen [Motrin Ib] 200 mg PO TID PRN 02/10/18 [History] Omeprazole [PriLOSEC] 40 mg PO DAILY 02/10/18 [History] Tramadol HCl [Ultram] 50 mg PO TID PRN 02/10/18 [History] Ibuprofen [Motrin] 600 mg PO Q6HR PRN #40 tab 02/11/18 [Rx] Allergy/AdvReac Type Severity Reaction Status Date / Time povidone-iodine Allergy Rash Verified 01/27/18 10:26 [From Betadine] quinine Allergy See Verified 01/27/18 10:26 Comments soap [From Betadine] Allergy Rash Verified 01/27/18 10:26 cefdinir AdvReac Diarrhea Verified 01/27/18 10:26 ezetimibe [From Zetia] AdvReac Muscle Pain Verified 01/27/18 10:26 Pneumococcal Vaccine AdvReac Redness of Verified 01/27/18 10:26 [From Pneumovax 23] Skin - Meds/Allergy Pre-op Review Medications Reviewed: Yes Allergies Reviewed: Yes Beta Blockers on Current Med List: No Anesthesia Results - Labs 12/04/18 11:08 12/04/18 11:08 Laboratory Tests 12/04/18 12/04/18 11:08 11:15 PT 11.9 INR 1.0 Est GFR (Non-Af Amer) > 60 - Imaging Additional studies: Impressions Abdomen/Pelvis CT 12/04/18 11:49 IMPRESSION: 1. Acute appendicitis 2. Hepatic steatosis 3. Duodenal and colonic diverticulosis 4. Status post cholecystectomy and hysterectomy D/ / Blaine Benjamin MD / Blaine Benjamin MD Interpreting Provider: Blaine Benjamin MD Anesthesia Exam Vital Signs Temp Pulse Resp BP Pulse Ox 12/04/18 13:33 98.6 F 77 16 144/72 92 12/04/18 12:59 86 18 135/74 95 12/04/18 12:15 78 18 141/73 98 12/04/18 11:29 77 18 146/81 100 12/04/18 11:19 98.7 F 84 18 134/79 94 12/04/18 10:47 98.7 F 84 18 134/79 94 Intake and Output 12/03/18 12/04/18 12/04/18 23:59 07:59 15:59 Intake Total 20 / 20 Balance 20 / 20 Intake: IV Fluids 20 / 20 Mefoxin 2,000 MG In Water for 20 / 20 inj. (sterile) 20 ML @ 300 mls/ hr IVP ONCE ONE Rx#:[id number] Other: Stool Characteristics Normal for Patient # Voids 1 Weight 79.2 kg Patient Weight 12/04/18 23:59 Weight 79.2 kg Height: 5'3" Weight: 174# BMI = 31 NPO (# of Hours): Mnoc - HEENT Pupil (Motor): Pupils equal, EOMI - MACHINING ASSOCIATE LOC: Oriented MACHINING ASSOCIATE Motor: Normal RUE, Normal LUE, Normal RLE, Normal LLE, Normal Face MACHINING ASSOCIATE Sensory: Normal: RUE, LUE, RLE, LLE, Face - Cardiac Rhythm: Regular Murmur: None - Pulmonary Breath Sounds: bilateral Clear Respiratory Effort: Symmetrical Anesthesia Assess/Plan ASA Score: 3 (Cholesterol, Obesity, Anxiety/Depression, Fibromyalgia, GERD, Asthma) Level of consciousness: Cooperative, Oriented, Tranquil Anesthetic Plan: General Monitoring Plan: Standard Monitors Recovery Plan: PACU Anes Supervising Prov Stmt: Pt seen/evaluated, R&B Discussed, questions answered and consent obtained. Summer Campos MD
[2018-12-04] MEDS ORDERED: *HR* FentaNYL (PF) 100 MCG/2 ML VIAL ONE ×2 (14:52→15:47)
[2018-12-04] MEDS ORDERED: *HR* Propofol 200 MG/20 ML VIAL IVP ONE (14:52)
[2018-12-04] MEDS ORDERED: Dexamethasone 4 MG/ML VIAL ONE (14:53)
[2018-12-04] MEDS ORDERED: Ondansetron 4 MG/2 ML VIAL ONE (14:53)
[2018-12-04] MEDS ORDERED: *HR* Midazolam HCl 2 MG/2 ML VIAL ONE (14:53)
[2018-12-04] MEDS ORDERED: *HR* Rocuronium Bromide 50 MG/5 ML VIAL ONE (14:53)
[2018-12-04] MEDS ORDERED: Lidocaine HCL 4 ML Topical Solution (Laryng-O-Jet Kit Sterile Pak) TP ONE (14:53)
[2018-12-04] MEDS ORDERED: Lidocaine -MPF 2% 2 ML VIAL ONE (14:53)
[2018-12-04] MEDS ORDERED: CefOXitin 1,000 MG VIAL ONE (15:14)
[2018-12-04] MEDS ORDERED: Neostigmine Methylsulfate 3 MG/3 ML SYRINGE ONE (16:08)
--- NOTE | 2018-12-04 16:20 | Operative Note ---
Date of procedure: 12/04/18 Pre-op diagnosis: Acute appendicitis Post-op diagnosis: same Procedure: Laparoscopic appendectomy Anesthesia: NICOLE Surgeon: Cal Bowen Was there an assistant mechanic present: Yes Tube Puller: Freda Almanza Estimated blood loss (cc): 25 Specimen: Appendix Condition: stable Disposition: PACU Procedure in Detail: After informed consent the patient is taken to the major operating suite placed in supine position given adequate general endotracheal anesthesia. The abdomen is prepped and draped in sterile fashion utilizing ChloraPrep standard draping techniques. Timeout was taken patient was identified. I made a vertical midline incision below the umbilicus and dissected down to the level of fascia. I placed 2 traction stitches of 0 Vicryl. I entered the abdominal cavity visually. I placed a Melton trocar and insufflated to 15 mmHg pressure CO2. I placed a 5 mm trocar in the left suprapubic area and a 12 mm trocar in the left lower quadrant. The cecum was encased in inflammatory scar tissue. This inflammatory scar tissue was lysed. I was able to identify the appendix. The appendix was swollen and covered with pus. I elevated the appendix and created a window between the meso-appendix and the cecum. The attachment to the cecum was divided with a gastrointestinal load on the laparoscopic stapler. The mesentery of the appendix was divided with 2 vascular loads. All staple lines were intact. I irrigated with copious amounts of antibiotic containing solution including the pelvis. Photographic documentation was taken all trochars were removed. Fascia was closed with 0 Vicryl. Skin was closed with 2-0 Vicryl and 4-0 Vicryl. She tolerated the procedure well.
[2018-12-04] MEDS ORDERED: *HR* OxyCODONE Immed Rel 5 MG TABLET PO PRN (17:04)
[2018-12-04] MEDS ORDERED: Ondansetron 4 MG/2 ML VIAL IVP ONE (17:04)
[2018-12-04] MEDS ORDERED: *HR* HYDROmorphone (PF) 1 MG/ML SYRINGE IVP PRN (17:04)
--- NOTE | 2018-12-04 17:15 | Anesthesia Evaluation Post Op ---
Date of Encounter: 12/04/18 Time of Encounter: 17:15 - Vital Signs Vital Signs: Vital Signs/O2 Sat, Most Current Temp Pulse Resp BP Pulse Ox 99.7 F H 84 18 136/87 95 12/04/18 17:07 12/04/18 17:07 12/04/18 17:07 12/04/18 17:07 12/04/18 17:07 - Lungs Lungs: Clear Ascult./Percussion - Airway Airway: Non-obstructed - Cardiovascular Regular Rate - Mental Status Mental Status: Alert & Oriented, Answers Appropriately - Pain Pain Scale: 5 Pain Scale used: Numeric (1 - 10) - Nausea Vomiting Nausea Vomiting: Not Present - Hydration Hydration: Ice chips, Has not voided - Discharge PostOp Status: Transfer Patient to floor
[2018-12-04] MEDS ORDERED: *HR* Metoprolol 5 MG/5 ML VIAL IVP PRN (17:45)
[2018-12-04] MEDS: Gabapentin 300 MG CAPSULE PO SCH ×2 (20:33→20:37)
[2018-12-04] MEDS: 0.9 % Sodium Chloride 1,000 ML IVC SCH (20:43)
--- NOTE | 2018-12-04 22:00 | Electrocardiograph Report ---
[address] [address] Test Date: 2018-12-04 Pat Name: Blaire Hendrix Department: [id number] Room: 3A61 Gender: F Certified Driver Examiner: : 1950 Requested By: Rosa Snyder Order Number: [id number] Reading MD: Michaelle Brown Measurements Intervals [place] Rate: 76 P: 55 WA: 161 QRS: 9 QRSD: 102 T: 19 QT: 397 QTc: 447 Interpretive Statements Sinus rhythm Electronically Signed On 12-04-2018 21:58:39 EDT by Michaelle Brown
[2018-12-04] MEDS: *HR* OxyCODONE/APAP 5/325 TABLET PO PRN (23:12)
[2018-12-04] MEDS: cefOXitin 2,000 MG in Water for inj. (sterile) 20 ML IVP SCH (23:17)
[2018-12-05 07:02] VITALS: BP 109/58
[2018-12-05] MEDS: 0.9 % Sodium Chloride 1,000 ML IVC SCH (07:15)
[2018-12-05] MEDS: Gabapentin 300 MG CAPSULE PO SCH (07:46)
[2018-12-05] MEDS: *HR* OxyCODONE/APAP 5/325 TABLET PO PRN (07:46)
[2018-12-05] MEDS: cefOXitin 2,000 MG in Water for inj. (sterile) 20 ML IVP SCH (07:47)
--- NOTE | 2018-12-05 09:26 | Discharge Summary ---
<Darline Turk - Last Filed: 12/05/18 10:13> Orders not resulted at time of discharge: Pending orders 12/04/18 11:08 Culture,Urine [RM] Stat 12/04/18 16:15 Surgical Pathology [PTH] Routine Date of Encounter: 12/05/18 Time of Encounter: 07:40 - Discharge Diagnosis (1) Acute appendicitis Priority: Primary Status: Resolved Qualifiers: Acute appendicitis type: with localized peritonitis Appendicitis gangrene presence: unspecified whether gangrene present Appendicitis perforation presence: without perforation Appendicitis abscess presence: without abscess Qualified Code(s): K35.30 - Acute appendicitis with localized peritonitis, without perforation or gangrene General Surgery Exam Initial Vital Signs Temp Pulse Resp BP Pulse Ox 98.7 F 84 18 134/79 94 12/04/18 10:47 12/04/18 10:47 12/04/18 10:47 12/04/18 10:47 12/04/18 10:47 - General physical appearance no distress, moderate pain (with coughing, otherwsie controlled) - ENT dentures, atraumatic, normocephalic - Respiratory normal expansion, normal respiratory effort - Cardiovascular Cardiovascular exam: Present: RRR - Abdomen Abdomen general surgery: Present: bowel sounds present, soft, tender (expected postoperative) - Incision Incision: Present: clean and dry, intact - Integumentary Integumentary general surgery: Present: warm and dry - Neurologic Present: normal sensation - Musculoskeletal Present: normal posture - Psychiatric Psychiatric general surgery: Present: A&Ox3 - Hospital Course Hospital course: Ms. Hendrix is a 68 year old female who presented on 12/04/2018 with right lower quadrant pain. She was found to have acute appendicitis and taken to the opera ting room on the same day where she underwent an uncomplicated laparoscopic appendectomy. She is ambulating avoiding without difficulty, tolerating a diet without nausea or vomiting, vital signs are stable, and she is afebrile. We will begin discharge planning to home with a follow-up in the office in approximately 2 weeks. - Time Spent with Patient Total time spent providing and/or coordinating discharge services: - Discharge Medications Prescriptions: New Docusate Sodium [Colace] 100 mg PO BID PRN #30 capsule PRN Reason: Contstipation Ibuprofen 800 mg PO Q8H PRN #30 tablet PRN Reason: Postsurgical pain OxyCODONE/APAP 5/325 [Percocet 5/325 MG] 1 each PO Q6HR PRN 5 Days #20 tablet PRN Reason: Pain Ondansetron HCl [Zofran] 4 mg PO Q6H PRN 5 Days #10 tablet PRN Reason: Nausea Amoxicillin/Clavulanate [Augmentin] 875 mg PO BIDWM 3 Days #6 tablet Continued Albuterol Sulfate [Ventolin Hfa] 2 puff IH Q4H PRN PRN Reason: Shortness Of Breath Atorvastatin [Lipitor] 10 mg PO HS Buspirone HCl [Buspar] 15 mg PO BID Cholecalciferol (D-3) [Vitamin D] 2,000 unit PO DAILY Fluticasone Propionate Nasal [Flonase] 1 spr NS DAILY Gabapentin [Neurontin] 600 mg PO QID Glucosamine Sulfate Dipot Chlr [Glucosamine] 1,000 mg PO DAILY Omeprazole [PriLOSEC] 40 mg PO DAILY Discontinued Ibuprofen [Motrin Ib] 200 mg PO TID PRN PRN Reason: Mild To Moderate Pain Tramadol HCl [Ultram] 50 mg PO TID PRN PRN Reason: Mild To Moderate Pain Ibuprofen [Motrin] 600 mg PO Q6HR PRN #40 tab PRN Reason: post op pain Home Medications: Albuterol Sulfate [Ventolin Hfa] 2 puff IH Q4H PRN 02/10/18 [History] Atorvastatin [Lipitor] 10 mg PO HS 02/10/18 [History] Buspirone HCl [Buspar] 15 mg PO BID 02/10/18 [History] Cholecalciferol (D-3) [Vitamin D] 2,000 unit PO DAILY 02/10/18 [History] Fluticasone Propionate Nasal [Flonase] 1 spr NS DAILY 02/10/18 [History] Gabapentin [Neurontin] 600 mg PO QID 02/10/18 [History] Glucosamine Sulfate Dipot Chlr [Glucosamine] 1,000 mg PO DAILY 02/10/18 [History] Omeprazole [PriLOSEC] 40 mg PO DAILY 02/10/18 [History] Amoxicillin/Clavulanate [Augmentin] 875 mg PO BIDWM 3 Days #6 tablet 12/05/18 [Rx] Docusate Sodium [Colace] 100 mg PO BID PRN #30 capsule 12/05/18 [Rx] Ibuprofen 800 mg PO Q8H PRN #30 tablet 12/05/18 [Rx] Ondansetron HCl [Zofran] 4 mg PO Q6H PRN 5 Days #10 tablet 12/05/18 [Rx] OxyCODONE/APAP 5/325 [Percocet 5/325 MG] 1 each PO Q6HR PRN 5 Days #20 tablet 12/05/18 [Rx] Allergies/Adverse Reactions: Allergy/AdvReac Type Severity Reaction Status Date / Time povidone-iodine Allergy Rash Verified 01/27/18 10:26 [From Betadine] quinine Allergy See Verified 01/27/18 10:26 Comments soap [From Betadine] Allergy Rash Verified 01/27/18 10:26 cefdinir AdvReac Diarrhea Verified 01/27/18 10:26 ezetimibe [From Zetia] AdvReac Muscle Pain Verified 01/27/18 10:26 Pneumococcal Vaccine AdvReac Redness of Verified 01/27/18 10:26 [From Pneumovax 23] Skin Date of admission: 12/04/18 13:06 Primary care physician: Cal Odom MD Consults: 12/04/18 14:06 Consult to Nutrition [CONS] Routine Comment: Consulting Provider: NUTRITION Reason for Dietary Consult: MST Score Consult to [place] [CONS] Routine Reason for SW Consult: patient requests- financial concerns for this surgery and hospital stay Discharging clinician: Kandi Nava (Raymond Turk APRN-[employer]) Anticipated date of discharge: 12/05/18 Labs on day of discharge: Labs from last 24 hours 12/04/18 12/04/18 12/04/18 11:15 11:08 11:08 WBC 15.2 H RBC 4.99 H Hgb 14.3 Hct 43.8 MCV 87.8 MCH 28.7 MCHC 32.6 RDW 13.7 Plt Count 263 MPV 10.0 Immature Gran % 0.3 Seg Neutrophils % 69.6 Lymphocytes % 18.0 Monocytes % 11.4 Eosinophils % 0.4 Basophils % 0.3 Neutrophils # 10.5 H Lymphocytes # 2.7 Monocytes # 1.7 H Eosinophils # 0.1 Basophils # 0.1 PT 11.9 INR 1.0 Sodium 137 Potassium 3.8 Chloride 104 Carbon Dioxide 27 BUN 16 Creatinine 0.83 Est GFR ( Amer) > 60 Est GFR (Non-Af Amer) > 60 BUN/Creatinine Ratio 19 Glucose 102 Calculated Osmolality 285 Calcium 9.4 Total Bilirubin 0.5 Direct Bilirubin 0.1 Indirect Bilirubin 0.4 AST 20 ALT 16 Alkaline Phosphatase 92 Serum Total Protein 8.0 Albumin 4.4 Globulin 3.6 H Albumin/Globulin Ratio 1.2 Lipase 9 L Urine Color Urine Clarity Urine pH Ur Specific [place] Urine Protein Urine Glucose (UA) Urine Ketones Urine Blood Urine Nitrite Urine Bilirubin Urine Urobilinogen Ur Leukocyte Esterase Urine Microscopic RBC Urine Microscopic WBC Ur Squamous Epith Cells Urine Bacteria Ur Culture Indicated? 12/04/18 11:08 WBC RBC Hgb Hct MCV MCH MCHC RDW Plt Count MPV Immature Gran % Seg Neutrophils % Lymphocytes % Monocytes % Eosinophils % Basophils % Neutrophils # Lymphocytes # Monocytes # Eosinophils # Basophils # PT INR Sodium Potassium Chloride Carbon Dioxide BUN Creatinine Est GFR ( Amer) Est GFR (Non-Af Amer) BUN/Creatinine Ratio Glucose Calculated Osmolality Calcium Total Bilirubin Direct Bilirubin Indirect Bilirubin AST ALT Alkaline Phosphatase Serum Total Protein Albumin Globulin Albumin/Globulin Ratio Lipase Urine Color Yellow Urine Clarity Clear Urine pH 6.5 Ur Specific [place] 1.027 H Urine Protein Trace Urine Glucose (UA) Normal Urine Ketones Negative Urine Blood Negative Urine Nitrite Negative Urine Bilirubin Negative Urine Urobilinogen Normal Ur Leukocyte Esterase Trace H Urine Microscopic RBC 0-3 Urine Microscopic WBC 0-3 Ur Squamous Epith Cells Few Urine Bacteria Few Ur Culture Indicated? YES A Preliminary micro results at discharge 12/04/18 11:08 Urine Culture - Preliminary Urine,Clean Catch Culture is incubating. - Impressions ITS Impressions Abdomen/Pelvis CT 12/04/18 11:49 IMPRESSION: 1. Acute appendicitis 2. Hepatic steatosis 3. Duodenal and colonic diverticulosis 4. Status post cholecystectomy and hysterectomy D/ / Blaine Benjamin MD / Blaine Benjamin MD Interpreting Provider: Blaine Benjamin MD - Patient Status Disposition: Home, Self-Care Condition: Fair Functional capacity at discharge: independent ambulation Overall status at discharge: patient is progressing back to baseline - Discharge Instructions Instructions: Ibuprofen (By mouth), Oxycodone/Acetaminophen (By mouth), Amoxicillin/Clavulanate Potassium (By mouth), Laxative, Stool Softeners (By mouth), Ondansetron (By mouth), Laparoscopic Appendectomy (DC) Follow Up With: Cal Odom MD [Primary Care Provider] - 12/31/18 10:30 am Cal Bowen MD [Partnered Physician] - 12/16/18 9:20 am Additional Instructions: General Surgical Discharge Instructions 1. No pushing, pulling, or lifting greater than 15 lbs for 4 weeks. 2. You may remove your dressings and shower beginning today, but no tub baths, soaking, or swimming for 2 weeks. 3. No driving for one weeks unless otherwise specified and then you may resume driving when you are off narcotics and are safe to react in a car. 4. Apply ice 20 minutes every hour that you are awake to your abdomen and Take ibuprofen every 8 hours for discomfort. If this does not relieve discomfort, you may take the as needed Percocet. Eat a small snack with pain medication as this will help reduce the risk of nausea. Take narcotics as directed. Do not take more narcotics then directed and do not share your narcotics with any other person. Do not drink alcohol while on narcotics. You can take the Zofran/ondansetron if needed for nausea or with a dose of narcotics to prevent nausea. 5. Take stool softeners (Colace) or a water based laxative (Miralax) while taking narcotics. You may hold for loose stools. 6. Report any fevers greater than 100.5F, increase abdominal discomfort, drainage that looks like pus, increased redness or pain at the surgical site, or any vomiting. 7. Report any pain in the calves, shortness of breath, or rapid heartbeat. 8. Follow-up in the office as directed. 9. If you were prescribed antibiotics, do not stop them without talking to your provider. - Diet and Activity Activity: increase activity as tolerated Diet: advance to your usual diet <Kandi Christianson - Last Filed: 12/05/18 18:55> Orders not resulted at time of discharge: Pending orders 12/04/18 16:15 Surgical Pathology [PTH] Routine Date of Encounter: 12/05/18 General Surgery Exam Initial Vital Signs Temp Pulse Resp BP Pulse Ox 98.7 F 84 18 134/79 94 12/04/18 10:47 12/04/18 10:47 12/04/18 10:47 12/04/18 10:47 12/04/18 10:47 - Hospital Course Hospital course: Ms. Hendrix is a 68 year old female - Time Spent with Patient Total time spent providing and/or coordinating discharge services: Date of admission: 12/04/18 13:06 Primary care physician: Cal Odom MD Consults: 12/04/18 14:06 Consult to Nutrition [CONS] Routine Comment: Consulting Provider: NUTRITION Reason for Dietary Consult: MST Score Consult to [place] [CONS] Routine Reason for SW Consult: patient requests- financial concerns for this surgery and hospital stay - Impressions ITS Impressions Abdomen/Pelvis CT 12/04/18 11:49 IMPRESSION: 1. Acute appendicitis 2. Hepatic steatosis 3. Duodenal and colonic diverticulosis 4. Status post cholecystectomy and hysterectomy D/ / Blaine Benjamin MD / Blaine Benjamin MD Interpreting Provider: Blaine Benjamin MD - Attending Attestation I examined this patient and my medical decision-making was reviewed with the [employer]. I agree with the documented findings, disposition and treatment plan as described to the extent set forth below. POD#1 lap appy. Pt tolerating regular food. Ambulating. Voiding. Pt condition is satisfactory for DC home today. See DC plan for post-op and f/u instuctions.
[2018-12-05] MEDS ORDERED: Ibuprofen 800 MG TABLET PO ONE (10:14)
== END 2018-12-05 11:17 | disposition home or self-care (01) ==
LOC: 3ANU 10:39 → EMEROOARM 10:39 → 3ANU 13:29
PROVIDERS: ADMIT Surgery; ATTEND Surgery

== ENCOUNTER 2019-05-19 11:55 | Observation (INO) ==
[2019-05-19] MEDS ORDERED: Isovue-370 500 ML BOTTLE IVP ONE (12:54)
[2019-05-19 13:52] LABS: Basophils % 0.5 %; Eosinophils # 0.5 K/mcL (0.0-0.6); Eosinophils % 5.8 %; Hematocrit 38.6 % (35.3-44.9); Hemoglobin 12.7 g/dL (11.5-15.4); Immature Granulocytes % 0.3 % (0-4); Lymphocytes # 3.3 K/mcL (0.6-4.6); Lymphocytes % 43.3 %; Mean Corpuscular HGB Conc 32.9 g/dL (31.6-35.5); Mean Corpuscular Hemoglobin 28.7 pg (28.0-33.3); Mean Corpuscular Volume 87.3 fL (83.0-100.0); Mean Platelet Volume 9.7 fL (9.4-12.4); Monocytes # 1.1 K/mcL (0.0-1.3); Monocytes % 13.9 %; Neutrophils # 2.8 K/mcL (1.6-8.9); Platelet Count 293 K/mcL (140-400); Red Blood Count 4.42 M/mcL (3.82-4.97); Red Cell Distribution Width 13.9 % (11.5-14.5); Segmented Neutrophils % 36.2 %; White Blood Count 7.7 K/mcL (4.3-11.1)
[2019-05-19 13:54] LABS: Prothrombin Time 11.2 Seconds (9.4-12.1)
[2019-05-19 13:57] LABS: Activated Partial Thrombo Time 36.2 Seconds (26.0-36.0)
[2019-05-19 14:26] LABS: Alanine Aminotransferase 16 Units/L (7-52); Albumin 3.9 g/dL (3.5-5.7); Albumin/Globulin Ratio 1.1 (1.1-2.2); Alkaline Phosphatase 96 Units/L (34-104); Aspartate Amino Transferase 22 Units/L (13-39); BUN/Creatinine Ratio 11 (6-26); Bilirubin,Total 0.4 mg/dL (0.3-1.0); Blood Urea Nitrogen 10 mg/dL (8-23); Calcium 9.4 mg/dL (8.6-10.3); Carbon Dioxide 24 mEq/L (23-29); Chloride 106 mEq/L (98-107); Globulin 3.4 g/dL (2.4-3.5); Glucose 90 mg/dL (70-105); Osmolality,Calculated 287 (280-300); Potassium 4.3 mEq/L (3.5-5.1); Sodium 139 mEq/L (136-145); Total Protein 7.3 g/dL (6.4-8.9); eGFR For African Americans > 60 (> 60); eGFR For Non-African Americans > 60 (> 60)
[2019-05-19] MEDS ORDERED: Ondansetron 4 MG/2 ML VIAL IVP PRN (16:58)
[2019-05-19] MEDS ORDERED: Fluticasone Propionate Nasal 50 MCG/SPRAY BOTTLE NS PRN (18:08)
[2019-05-19] MEDS ORDERED: NON-FORMULARY MEDICATION 1 EACH EACH (Gabapentin [Neurontin] 600 MG) PO SCH (21:00)
[2019-05-19] MEDS: Gabapentin 300 MG CAPSULE PO SCH (21:59)
[2019-05-19 22:19] LABS: Hematocrit 41.6 % (35.3-44.9); Hemoglobin 13.5 g/dL (11.5-15.4)
[2019-05-20 07:03] LABS: BUN/Creatinine Ratio 10 (6-26); Blood Urea Nitrogen 8 mg/dL (8-23); Calcium 9.7 mg/dL (8.6-10.3); Carbon Dioxide 24 mEq/L (23-29); Chloride 106 mEq/L (98-107); Glucose 105 mg/dL (70-105); Osmolality,Calculated 285 (280-300); Potassium 3.8 mEq/L (3.5-5.1); Sodium 138 mEq/L (136-145); eGFR For African Americans > 60 (> 60); eGFR For Non-African Americans > 60 (> 60)
[2019-05-20] MEDS ORDERED: Loratadine 10 MG TABLET PO SCH (09:00)
[2019-05-20] MEDS ORDERED: calcium polycarbophiL 625 MG TABLET PO SCH (09:00)
[2019-05-20] MEDS ORDERED: Cholecalciferol (D-3) 1,000 UNIT (25MCG) TABLET PO SCH (09:00)
[2019-05-20] MEDS: Gabapentin 300 MG CAPSULE PO SCH ×2 (10:06→14:05)
[2019-05-20] MEDS ORDERED: *HR* Propofol 200 MG/20 ML VIAL IVP ONE (11:59)
[2019-05-20] MEDS ORDERED: Lidocaine -MPF 2% 2 ML VIAL ONE (12:00)
[2019-05-20 16:43] VITALS: BP 136/87
== END 2019-05-20 16:23 | disposition home or self-care (01) ==
LOC: EMEROOARM 11:55 → 3ANU 11:55 → SUATTDRO 16:49 → 3ANU 17:34
PROVIDERS: ADMIT Internal Medicine; ATTEND Pharmacist